=== PATIENT | male | born 1970 | race Caucasian/White ===

== ENCOUNTER 2023-09-29 08:26 | Outpatient (AMB) | payer OTHER, SELFPAY ==
--- NOTE | 2023-09-29 08:30 | MHC.PC.OV ---
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 Patient reports he would like to discuss a few minor concerns with the provider. Carding Machine Feeder Required: No Accompanied by: Self / Same As Patient Allergies No Known Allergies Allergy (Verified 09/29/23 08:35) Medication List - Last Reconciled 09/29/23 by JOSSELINE AbdullahiP- No Known Home Meds Tobacco use date assessed: 09/29/23 Dental Screening Dental Screen Date: 09/29/23 Did you have a dental visit in the last 12 months?: Yes Did you have a dental problem in the last 6 months where you did not have access to dental care?: No Was dental information given to patient?: Patient has dentist HPI HPI Comments History of Present Illness Details 53 Y/O M newly with obesity, daily etoh use 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 Health Maintenance: Colon: never had one, referral placed today Vaccines: UTD on COVID, declines flu, due for Tdap will get today. Specialists: none Surgeries: None Here today for CPE Reports no health care in > 20 years. Routine dental and Optho f/u. No concerns. Skin: Right hand mole noticed 5-6 months ago. It has not changed since this time. Denies personal hx of skin cancer. Also reports darkening of areola on R side, started a few months ago. Denies any pain, discharge or increased size of this breast. Drinks almost daily. Denies any concerns. Denies w/drawl or detox. [facility] Social History (Updated 09/29/23 @ 08:39 by Janelle Perez [facility]) Household Members: Children Household Members Other:: daughter Housing: Apartment Are you a primary home health care social worker to a significant other at home: No Do you presently have visiting nurse or other home services: No Alcohol intake: current Alcohol intake frequency: 3 or more drinks per day Alcohol type: beer and hard liquor Comment: Patient drinks about 5 days per week Patient Tobacco Use Status: Never used Tobacco e-Cigarette/Vaping Use: Never Used service: No Current occupational status: employed Current occupation: [employer] in [place], [place], [employer] Current occupational exposures/hazards: Yes Sexual orientation: Unable to collect Gender identity: Unable to collect Cognitive needs: No Hearing needs: No Vision needs: No (Patient wears glasses) Questionnaire PHQ-9 Over the last 2 weeks, how often have you been bothered by any of the following problems? 1. Little interest or pleasure in doing things: not at all 2. Feeling down, depressed, or hopeless: not at all 3. Trouble falling or staying asleep, or sleeping too much: not at all 4. Feeling tired or having little energy: not at all 5. Poor appetite or overeating: not at all 6. Feeling bad about yourself - or that you are a failure or have let yourself or your family down: not at all 7. Trouble concentrating on things, such as reading the newspaper or watching television: not at all 8. Moving or speaking so slowly that other people could have noticed. Or the opposite - being so fidgety or restless that you have been moving around a lot more than usual: not at all 9. Thoughts that you would be better off or of hurting yourself in some way: not at all Total score: 0 Depression Screening Interpretation: Negative Depression Screening Done: Yes 90551 - PHQ-9 Billing: Yes Source: Developed by Drs. Horacio Donnelly, Dina Mcclellan, Salvador Bermudez and colleagues, with an educational chasity from [employer]. Thrive Questionnaire Date Thrive assessed: 09/29/23 I am a: Patient What is your living situation today?: I have a steady place to live Within the past 12 months, did the food you bought not last and you didn't have the money to get more?: Never true Within the past 12 months, did you worry whether your food would run out before you got money to buy more?: Never true Do you have trouble paying for medicines?: No Do you have trouble getting transportation to medical appointments?: No Do you have trouble paying your heating and electricity bill?: No Do you have trouble taking care of your child, family member or friend?: No Do you have trouble with day-to-day activities such as bathing, preparing meals, shopping, managing finances, etc.?: No Are you currently unemployed and looking for a job?: No Are you interested in more education?: No Please select the resources that you would like help with: None Currently or been in a relationship where the following occur: no concerns reported THRIVE Score: 0 AUDIT C Alcohol Use Questionnaire (AUDIT-C) 1. How often do you have a drink containing alcohol?: 4 or more times a week 2. How many drinks containing alcohol do you have on a typical day when you are drinking?: 3 or 4 3. How often do you have six or more drinks on one occasion?: Never Total Score: 5 Score Reviewed/Action Taken: Yes DONNIE-7 AMB Questionnaire DONNIE-7 Date DONNIE - 7 assessed: 09/29/23 Feeling nervous, anxious, or on edge: 0 = Not at all Not being able to stop or control worryin = Not at all Worrying too much about different things: 0 = Not at all Trouble relaxin = Not at all Being so restless that it is hard to sit still: 0 = Not at all Becoming easily annoyed or irritable: 0 = Not at all Feeling afraid as if something awful might happen: 0 = Not at all Total DONNIE-7 score (0-4 normal; 5-9 mild; 10-14 moderate; 15-21 severe): 0 Source: Developed by Drs. Horacio Donnelly, Dina Mcclellan, Salvador Bermudez and colleagues, with an educational chasity from [employer]. DONNIE-7 Assessment Billing DONNIE-7 Assessment Tool: DONNIE-7 Assessment 60932 Review of Systems Const Details: Constitutional: [Denies} fever. Skin: Denies rash. Eye: Denies eye pain. ENMT: Denies sore throat and nasal congestion. Respiratory: Denies shortness of breath and cough. Gastrointestinal: Denies nausea, vomiting or abdominal pain. Cardiovascular: Denies chest pain and syncope. Genitourinary: Denies dysuria. Musculoskeletal: Denies back pain and extremity pain. Neurologic: Denies headaches, confusion, and weakness. Psychiatric: Denies suicidal thoughts and substance abuse. Allergy/ Immunologic: Denies impaired immunity. Physical exam (Primary Care) Vital Signs: Last Vital Signs Pulse 78 09/29/23 08:32 Resp 14 09/29/23 08:32 BP 122/78 09/29/23 08:32 Pulse Ox 96 09/29/23 08:32 Oxygen Delivery Method Room Air 09/29/23 08:32 BMI result Body Mass Index 30.5 BMI Assessment/Plan discussion: High BMI High, discussed plan: lifestyle and dietary Tobacco/Smoking Status: Tobacco use Status Tobacco use date assessed 09/29/23 09/29/23 08:42 Patient Tobacco Use Status Never used Tobacco 09/29/23 08:42 e-Cigarette/Vaping Use Never Used 09/29/23 08:42 PHQ-9: PHQ-9 Score PHQ-9: Total score 0 09/29/23 08:46 Depression Screening Interpretation: Negative Thrive Assessment: Date of Thrive Assessment Date Thrive assessed 09/29/23 09/29/23 08:42 Currently or been in a relationship where the following occur: no concerns reported Const Other: General: Well developed, well nourished, in no acute distress. Appears stated age. Head: Normocephalic, atraumatic. Eyes: Pupils are equal, round and reactive to light and accommodation. Conjunctivae are clear. Vision grossly normal. Ears: TMs clear AU, EACS WNL Nose: Patent, without discharge. Mouth: There are no ulcers or lesions noted. No inflammation, no post nasal drip, no plaques nor exudates. Neck: Supple, no adenopathy or thyromegaly. Lungs: Clear to auscultation bilaterally. No rales, rhonchi or wheeze noted. Good air flow in all jaffe. Heart: Regular rate and rhythm. No murmurs, click, rubs or gallops are noted. Abdomen: Bowel sounds present in all quadrants. The abdomen is soft, nontender, with no masses. No hernias are noted. Positive hepatomegaly liver out palpable but nontender Musculoskeletal: Joints are nontender, without swelling, redness, or effusions. Range of motion is observed to be normal. Pulses: Peripheral pulses are equal and palpable bilaterally. Extremities: No clubbing, cyanosis nor edema is noted. Hairless bilateral lower extremities, skin is shiny and intact Neurologic: Gait and station normal. Cranial Nerves 2-12 intact. Motor strength grossly symmetrical and intact. No sensory loss. Balance normal. Skin: No rash. Turgor is good. Skin color is good. Hair and nails are without abnormalities. Areolar keratitis of the right without any other breast abnormalities noted such as discharge dimpling retraction or gynecomastia. Multiple nevi noted on trunk. Dorsum of right hand is a pale flesh colored nevi slightly raised with regular borders with scaling. Psych: Normal eye contact, affect and mood appropriate, and normal interactions. Patient is alert and appropriate to context. Immunizations Boostrix Tdap 2.5 Lf unit-8 mcg-5 Lf/0.5 mL intramuscular syringe Performing Provider: JEAN-PAUL Abdullahi Performing Location: [facility] Administered by: Ame Carver RN on 09/29/23 09:22 Dose Route Admin Location Dispensed Lot Number Expiration Date NDC Bus Info Consultant 0.5 mL IM Left Deltoid 0.5 mL [id number] 07/16/25 [id number] [employer] VIS Given Date VIS Provided VIS Publication Date 09/29/23 Single Vaccine 21 Eligibility Eligibility Date Funding Source Not [facility] Eligible 09/29/23 Private Assessment and Plan Assessment & Plan (1) Routine physicl lab exam: Code(s): Z00.00 - Encounter for general adult medical examination without abnormal findings (2) Screening for colon cancer: Code(s): Z12.11 - Encounter for screening for malignant neoplasm of colon Plan: Refer to [facility] for his 1st colon screening (3) Laboratory exam ordered as part of routine general medical examination: Code(s): Z00.00 - Encounter for general adult medical examination without abnormal findings (4) Areolar keratitis: Comment: Refer to dermatology for further evaluation and treatment Code(s): H16.119 - Macular keratitis, unspecified eye Qualifiers: Laterality: right Qualified Code(s): H16.111 - Macular keratitis, right eye (5) Numerous moles: Comment: Refer to dermatology for further evaluation and treatment Code(s): D22.9 - Melanocytic nevi, unspecified (6) Obesity (BMI 30-39.9): Comment: Lifestyle modifications and ETOH reduction encouraged Code(s): E66.9 - Obesity, unspecified (7) PVD (peripheral vascular disease): Comment: Based on physical exam findings hairless bilateral lower extremities and shiny skin. Code(s): I73.9 - Peripheral vascular disease, unspecified (8) Alcohol use disorder: Comment: Daily alcohol drinker. Denies any withdrawal in the past. Declines any referral for assistance. Code(s): F10.90 - Alcohol use, unspecified, uncomplicated Orders: Orders Comprehensive [place]. Panel Fast Today Z00.00 - Encounter for general adult medical examination without abnormal findings, Z12.11 - Encounter for screening for malignant neoplasm of colon TDaP Immunization Today Z23 - Encounter for immunization Lipid Panel Today Z00.00 - Encounter for general adult medical examination without abnormal findings, Z12.11 - Encounter for screening for malignant neoplasm of colon Microalbumin, Random (w Creat) Today Z00.00 - Encounter for general adult medical examination without abnormal findings, Z12.11 - Encounter for screening for malignant neoplasm of colon TSH reflex Free T4 Today Z00.00 - Encounter for general adult medical examination without abnormal findings, Z12.11 - Encounter for screening for malignant neoplasm of colon Vitamin D 1,25 dihydroxy Today Z00.00 - Encounter for general adult medical examination without abnormal findings, Z12.11 - Encounter for screening for malignant neoplasm of colon PSA, Ultra Sensitive Today Z00.00 - Encounter for general adult medical examination without abnormal findings, Z12.11 - Encounter for screening for malignant neoplasm of colon Referrals Gastroenterology Referral Z00.00 - Encounter for general adult medical examination without abnormal findings, Z12.11 - Encounter for screening for malignant neoplasm of colon Dermatology Referral D22.9 - Melanocytic nevi, unspecified, H16.119 - Macular keratitis, unspecified eye Patient Instructions: Health screenings for men ages 40 to 64 You should visit your health care provider regularly, even if you feel healthy. The purpose of these visits is to: Screen for medical issues Assess your risk for future medical problems Encourage a healthy lifestyle Update vaccinations and other preventive care services Help you get to know your provider in case of an illness Information Even if you feel fine, you should still see your provider for regular checkups. These visits can help you avoid problems in the future. For example, the only way to find out if you have high blood pressure is to have it checked regularly. High blood sugar and high cholesterol level also may not have any symptoms in the early stages. Simple blood tests can check for these conditions. There are specific times when you should see your provider or receive specific health screenings. The [place] Preventive Services Task Force publishes a list of recommended screenings. Below are screening guidelines for men ages 40 to 64. BLOOD PRESSURE SCREENING Have your blood pressure checked at least once every year. Watch for blood pressure screenings in your area. Ask your provider if you can stop in to have your blood pressure checked. Ask your provider if you need your blood pressure checked more often if: You have diabetes, heart disease, kidney problems, or are overweight or have certain other health conditions You have a first-degree relative with high blood pressure You are Black Your blood pressure top number is from 120 to 129 mm Hg, or the bottom number is from 70 to 79 mm Hg If the top number is 130 mm Hg or greater or the bottom number is 80 mm Hg or greater, this is considered stage 1 hypertension. Schedule an appointment with your provider to learn how you can lower your blood pressure. Effects of age on blood pressure CHOLESTEROL SCREENING Cholesterol screening should begin at age 35 for men with no known risk factors for coronary heart disease. Repeat cholesterol screening should take place: Every 5 years for men with normal cholesterol levels More often if changes occur in lifestyle (including weight gain and diet) More often if you have diabetes, heart disease, kidney problems, or certain other conditions COLORECTAL CANCER SCREENING If you are under age 45, talk to your provider about getting screened. You may need to be screened if you have a strong family history of colon cancer or polyps. Screening may also be considered if you have risk factors such as a history of inflammatory bowel disease or polyps. If you are age 45 to 75, you should be screened for colorectal cancer. There are several screening tests available: A stool-based fecal occult blood (gFOBT) or fecal immunochemical test (FIT) every year A stool sDNA test every 1 to 3 years Flexible sigmoidoscopy every 5 years or every 10 years with stool testing FIT done every year CT colonography (virtual colonoscopy) every 5 years Colonoscopy every 10 years You may need a colonoscopy more often if you have risk factors for colorectal cancer, such as: Ulcerative colitis A personal or family history of colorectal cancer A history of growths in your colon called adenomatous polyps DENTAL EXAM Go to the dentist once or twice every year for an exam and cleaning. Your dentist will evaluate if you have a need for more frequent visits. DIABETES SCREENING All adults who do not have risk factors for diabetes should be screened starting at age 35 and repeated every 3 years. If you have other risk factors for diabetes, such as a first degree relative with diabetes, overweight or obesity, high blood pressure, prediabetes, or a history of heart disease, you may be tested more often. If you are overweight and have other risk factors, such as high blood pressure and are planning to become , screening is recommended. EYE EXAM Have an eye exam every 2 to 4 years ages 40 to 54 and every 1 to 3 years ages 55 to 64. Your provider may recommend more frequent eye exams if you have vision problems or glaucoma risk. Have an eye exam that includes an examination of your retina (back of your eye) at least every year if you have diabetes. IMMUNIZATIONS Commonly needed vaccines include: Flu shot: get one every year COVID-19 vaccine: ask your provider what is best for you Tetanus-diphtheria and acellular pertussis (Tdap) vaccine: have as one of your tetanus-diphtheria vaccines if you did not receive it as an adolescent Tetanus-diphtheria: have a booster (or Tdap) every 10 years Varicella vaccine: receive 2 doses if you never had chickenpox or the varicella vaccine and were born in 1979 or after Hepatitis B vaccine: receive 2, 3, or 4 doses, depending on your exact circumstances, if you did not receive these as a child or adolescent, until age 59 Shingles (herpes zoster) vaccine: at or after age 50 Ask your provider if you should receive other immunizations, especially if you have certain medical conditions, such as diabetes or are at increased risk for some diseases such as pneumonia. INFECTIOUS DISEASE SCREENING Screening for hepatitis C: all adults ages 18 to 79 should get a one-time test for hepatitis C. Screening for human immunodeficiency virus (HIV): all people ages 15 to 65 should get a one-time test for HIV. Depending on your lifestyle and medical history, you may need to be screened for infections such as syphilis, chlamydia, and other infections. LUNG CANCER SCREENING You should have an annual screening for lung cancer with low-dose computed tomography (LDCT) if: You are age 50 to 80 years AND You have a 20 pack-year smoking history AND You currently smoke or have quit within the past 15 years OSTEOPOROSIS SCREENING If you are age 50 to 64 and have risk factors for osteoporosis, you should discuss screening with your provider. Risk factors can include long-term steroid use, low body weight, smoking, heavy alcohol use, having a fracture after age 50, or a family history of hip fracture or osteoporosis. Osteoporosis PHYSICAL EXAM All adults should visit their provider from time to time, even if they are healthy. The purpose of these visits is to: Screen for diseases Assess risk of future medical problems Encourage a healthy lifestyle Update vaccinations and other preventive care services Maintain a relationship with a provider in case of an illness Your height, weight, and body mass index (BMI) should be checked at every exam. During your exam, your provider may ask you about: Depression and anxiety Diet and exercise Alcohol and tobacco use Safety, such as use of seat belts and smoke detectors Your medicines and risk for interactions PROSTATE CANCER SCREENING If you're 55 through 69 years old, before having the test, talk to your provider about the pros and cons of having a PSA test. Ask about: Whether screening decreases your chance of dying from prostate cancer. Whether there is any harm from prostate cancer screening, such as side effects from testing or overtreatment of cancer when discovered. Whether you have a higher risk of prostate cancer than others. If you are age 55 or younger, screening is not generally recommended. You should talk with your provider about if you have a higher risk for prostate cancer. Risk factors include: Having a family history of prostate cancer (especially a brother or father) Being If you choose to be tested, the PSA blood test is repeated over time (yearly or less often), though the best frequency is not known. Prostate examinations are no longer routinely done on men with no symptoms. Prostate cancer SKIN EXAM Your provider may check your skin for signs of skin cancer, especially if you're at high risk. People at high risk include those who have had skin cancer before, have close relatives with skin cancer, or have a weakened immune system. TESTICULAR EXAM The [place] Preventive Services Task Force (USPSTF) now recommends against performing testicular self-exams. Doing testicular self-exams has been shown to have little to no benefit. Review Flu Vaccine not done: patient reason Coding Level of Care Code New Pt Prev Care 40-64y(56809) Diagnoses Routine physicl lab exam Z00.00 Screening for colon cancer Z12.11 Laboratory exam ordered as part of routine general medical examination Z00.00 Areolar keratitis of right eye H16.111 Laterality: right Numerous moles D22.9 Obesity (BMI 30-39.9) E66.9 PVD (peripheral vascular disease) I73.9 Alcohol use disorder F10.90 Additional Codes DONNIE-7 Assessment Billing - DONNIE-7 Assessment Tool: DONNIE-7 Assessment [id number] ([id number])
[2023-09-29 08:32] VITALS: BP 122/78; PULSE 78; RESP 14; O2SAT 96; BMI 30.5
== END 2023-09-29 09:27 | disposition home or self-care (01) ==
PROVIDERS: PCP Nurse Practitioner Family; Visit Provider Nurse Practitioner Family
DX: Z00.00 Encounter for general adult medical examination without abnormal findings (principal); I73.9 Peripheral vascular disease, unspecified; E66.9 Obesity, unspecified; Z23 Encounter for immunization; Z68.30 Body mass index [BMI] 30.0-30.9, adult; Z12.11 Encounter for screening for malignant neoplasm of colon; H16.11 Macular keratitis; D22.9 Melanocytic nevi, unspecified; F10.90 Alcohol use, unspecified, uncomplicated
CPT/HCPCS: 90471; 90715; 99386

== ENCOUNTER 2023-09-29 09:19 | Outpatient (REF) | payer OTHER, SELFPAY ==
[2023-09-29 11:51] LABS: Creatinine Urine 156.81 mg/dL; Microalbum/Creatinine Ratio Ur 3.8 ug/mg cr (<30)
[2023-09-29 11:56] LABS: Alanine Aminotransferase 59 U/L (0-40); Albumin Level 4.3 g/dL (3.5-5.0); Alkaline Phosphatase 56 U/L (39-117); Anion Gap 13 (12-20); Aspartate Amino Transferase 41 U/L (5-37); Bilirubin Total 0.8 mg/dL (0.0-1.0); Blood Urea Nitrogen 12 mg/dL (9-16); Calcium 9.9 mg/dL (8.4-10.2); Carbon Dioxide 26 mmol/L (22-29); Chloride 103 mmol/L (96-108); Cholesterol 194 mg/dL (<200); Estimated Glomerular Filt Rate > 60; Glucose Fasting 130 mg/dL (60-99); HDL Cholesterol 49 mg/dL (>40); LDL Cholesterol Calculated 119 mg/dL (<100); Potassium 3.8 mmol/L (3.3-5.1); Sodium 138 mmol/L (135-145); Total Protein 7.5 g/dL (6.5-8.0); Triglycerides 132 mg/dL (<150)
[2023-09-29 12:11] LABS: TSH reflex Free T4 0.81 uIU/mL (0.32-4.0)
[2023-10-02 17:39] LABS: PSA, Ultra Sensitive 0.35 ng/mL
[2023-10-03 01:14] LABS: VITAMIN D (1,25 OH) D3 47 pg/mL; Vit D (1,25-Dihydroxy) Total 47 pg/mL (18-72); Vitamin D (1,25 OH) D2 <8 pg/mL
== END 2023-09-29 09:20 | disposition home or self-care (01) ==
LOC: HO.WFDLDS 09:19
PROVIDERS: Visit Provider Nurse Practitioner Family
DX: Z00.00 Encounter for general adult medical examination without abnormal findings (principal); Z12.5 Encounter for screening for malignant neoplasm of prostate
CPT/HCPCS: 36415; 80053; 80061; 82043; 82570; 82652; 84153; 84443

== ENCOUNTER 2023-11-04 08:11 | Outpatient (REF) | payer OTHER, SELFPAY ==
--- NOTE | ~2023-11-04 | US_ITS ---
EXAMINATION: US ABDOMEN LIMITED WITH LIVER ELASTOGRAPHY CLINICAL INFORMATION: Abnormal findings of blood chemistry. COMPARISON: None available. TECHNIQUE: Real-time imaging of the abdominal viscera. Noninvasive ultrasound liver fibrosis assessment is performed using Barbara ElastPQ point quantification shear wave elastography (2D-SWE) with a C5-2 MHz transducer. Multiple elastography samples are obtained. FINDINGS: PANCREAS: Normal. The visualized pancreatic head and body are normal in appearance. The remainder of the pancreas is obscured from visualization by the overlying bowel gas. LIVER: The liver demonstrates normal size, contour and increased echogenicity. No focal lesion or intrahepatic biliary duct dilatation. The right lobe measures 14.8 cm in length. The left lobe measures 11.9 cm in length. Portal flow is towards the liver (hepatopetal). Shear wave liver elastography median stiffness is 1.38 m/s (reference: normal median stiffness is 1.3 m/s or less). IQR/median stiffness to assess sampling precision is 0.15 (reference: good quality data set is IQR/median stiffness of 0.15 or less). GALLBLADDER: There are multiple cholesterol polyps, the largest measuring 3 mm. The gallbladder is physiologically distended without evidence of stones, sludge, polyps, wall thickening or pericholecystic fluid. COMMON BILE DUCT: Normal in caliber measuring 0.3 cm in diameter. RIGHT KIDNEY: Normal. No hydronephrosis. No renal calculi or focal parenchymal lesions. The kidney measures 10.5 cm in maximum dimension. FREE FLUID: None. US/US abdomen henriquez w elastography IMPRESSION: 1. There is generalized increase in hepatic echotexture, consistent with fatty infiltration or hepatocellular disease. Please correlate clinically. No focal hepatic mass or intrahepatic biliary dilatation is seen. 2. Liver elastography: In the absence of other known clinical signs, measurements rule out compensated advanced chronic liver disease. If there are known clinical signs, further testing may be needed for confirmation. 3. Incidental note is made of tiny cholesterol polyps, the largest measuring 3 mm. REFERENCE: Society of Radiologists in Ultrasound Liver Stiffness Thresholds (2020): LIVER STIFFNESS THRESHOLDS: *Liver Stiffness equal or less than 1.3 m/s: High probability of being normal. *Liver Stiffness less than 1.7 m/s: In the absence of other known clinical signs, rules out compensated advanced chronic liver disease. *Liver Stiffness 1.7-2.1 m/s: Suggestive of compensated advanced chronic liver disease but need further test for confirmation. *Liver Stiffness over 2.1 m/s: Rules in compensated advanced chronic liver disease. *Liver Stiffness over 2.4 m/s: Suggestive of clinically significant portal hypertension. QUALITY OF DATA SET: *IQR/Median value equal or less than 0.15 implies a quality data set. *IQR/Median value over 0.15 implies a poor quality data set. SIGNIFICANT CHANGE FROM PRIOR EXAM: Significant change if liver stiffness measurement is 10% or greater from prior exam. OTHER CONSIDERATIONS: The stage of liver fibrosis may be overestimated in the setting of acute hepatitis, liver inflammation, elevated liver function tests, hepatic vascular congestion, obstructive cholestasis, non-fasting state, and infiltrative diseases such as amyloidosis and lymphoma. In some patients with NAFLD, the liver stiffness thresholds for compensated advanced chronic liver disease may be lower. In causes other than viral hepatitis and NAFLD, liver stiffness thresholds are not well established.
== END 2023-11-04 08:12 | disposition home or self-care (01) ==
LOC: HO.US 08:11
PROVIDERS: PCP Nurse Practitioner Family; Visit Provider Nurse Practitioner Family
DX: R79.89 Other specified abnormal findings of blood chemistry (principal); R73.01 Impaired fasting glucose; F10.90 Alcohol use, unspecified, uncomplicated
CPT/HCPCS: 76705; 76981

== ENCOUNTER 2023-12-09 13:19 | Outpatient (AMB) | payer OTHER, SELFPAY ==
--- NOTE | 2023-12-09 13:20 | MHC.OFFVIS ---
Vital Signs 12/09/23 13:25 Height 6 ft Weight 227 lb 1.218 oz BMI 30.8 BP 143/80 H Blood Pressure Location Lt brachial Position Sitting Pulse 75 Intake Visit Reasons: pre colonoscopy Intake Note: Fabiano presents in the office as a colonoscopy screening. CC: He states that he had an ultrasound but never got results. US was done here he states it was ordered by the second floor. Commissioner Conservation Of Resources Required: No Allergies No Known Allergies Allergy (Verified 12/09/23 13:25) HPI HPI pre colonoscopy: Details: 53 year old? male here today for pre colonoscopy screening.? Patient had elevated liver enzymes back in September. PCP send patient for abdominal ultrasound with elastography. Patient reports drinking beer and whiskey about 5 days a week. Ultrasound showed increased echogenicity of the liver, no hepatomegaly. This is his first colonoscopy screening.? Patient denies any gastrointestinal symptoms in the past or at present.? Denies any personal or family history of gastrointestinal disease, colon polyps, or CRC.? Denies history of difficulty with sedation or anesthesia in the past.? Negative for history of sleep apnea.? Denies any history of cardiac, renal, pulmonary, or hepatic disease.?? No history of infectious? diseases like hepatitis A, B, C, HIV or tuberculosis.? Patient is not on any anticoagulation therapy. [facility] Medical History No pertinent past medical history Surgical History History of tonsillectomy Family History Father Hypertension Mother Ovarian cancer Maternal Grandmother Lung cancer Maternal Grandfather Lung cancer Paternal Grandfather Hypertension Cardiac disease Brother Alcoholism Sister Hypertension Social History Household Members: Children Household Members Other:: daughter Housing: Apartment Are you a primary pharmacy care coordinator to a significant other at home: No Do you presently have visiting nurse or other home services: No 75 years or older and lives alone: No Alcohol intake: current Alcohol intake frequency: 3 or more drinks per day Alcohol type: beer and hard liquor Comment: Patient drinks about 5 days per week Patient Tobacco Use Status: Never used Tobacco e-Cigarette/Vaping Use: Never Used service: No Current occupational status: employed Current occupation: [employer] in [place], [place], [employer] Current occupational exposures/hazards: Yes Sexual orientation: Unable to collect Gender identity: Unable to collect Cognitive needs: No Hearing needs: No Vision needs: No (Patient wears glasses) Review of Systems Const Denies weight gain and Denies weight loss ENT Reports no additional complaints, Denies dysphagia and Denies odynophagia Card Reports no additional complaints Resp Reports no additional complaints GI Denies abdominal pain, Denies belching, Denies melena, Denies bloating, Denies change in bowel habits, Denies dysphagia, Denies excessive flatus, Denies dyspepsia, Denies heartburn, Denies diarrhea, Denies loose stools, Denies nausea, Denies odynophagia and Denies vomiting Reports no additional complaints Musc Reports no additional complaints Neuro Reports no additional complaints Psych Reports no additional complaints Endo Reports no additional complaints Physical Exam Vital Signs: Last Vital Signs Pulse 75 12/09/23 13:25 BP 143/80 H 12/09/23 13:25 BMI result Body Mass Index 30.8 Const General: healthy appearing and no acute distress Nutritional Appearance: obese Orientation/consciousness: patient oriented x3 Resp Effort & Inspection: normal respiratory effort, able to speak in complete sentences, no tracheal deviation and symmetric chest movement Auscultation: clear to auscultation bilaterally Cardio Rate: regular rate GI Inspection: Yes normal to inspection and No distended Palpation (GI): Soft to palpation, not firm, nontender and No hepatosplenomegaly present Auscultation: normal bowel sounds General: Yes no CVA tenderness Back/Spine/Pelvis Back: no CVA tenderness Skin General skin exam: elasticity normal, turgor normal and dry skin Neuro General: patient oriented x3 Psych Appearance: grossly normal Mental Status: mental status grossly normal Assessment & Plan Assessment & Plan (1) Screening for colon cancer: Code(s): Z12.11 - Encounter for screening for malignant neoplasm of colon Plan Patient denies any GI, cardiac or respiratory symptoms. ?Denies any issues with anesthesia in the past.? Denies any history of sleep apnea.? No history infectious diseases in the past or present.? Not on any anticoagulation therapy.? No family or personal history of colon cancer or polyps.? Patient denies melena, hematochezia, unintentional weight loss or ribbon like stools.? Discussed at length the pre-procedure,? prep, diet & medications as well as what to expect prior, during and after the procedure.?? Stressed the importance of good bowel prep. ?Recommended the use of Vaseline or Calmoseptine OTC & baby wipes with bowel movements to promote comfort.? ?Patient verbalizes understanding and agrees to plan of care.? He was given the opportunity to ask questions and all questions answered.? We will see him after the procedure.? Medications: New polyethylene glycol 3350 (Miralax) As directed by gastroenterology department at [facility] 238 grams PO ONCE 238 grams 0RF Z12.11 - Encounter for screening for malignant neoplasm of colon bisacodyl (Dulcolax (bisacodyl)) take 4 tabs at noon the day before your colonoscopy 20 mg (4 x 5 mg) PO ONCE 1 day 4 tabs 0RF Z12.11 - Encounter for screening for malignant neoplasm of colon Coding Level of Care Code New Pt Level 3 (54906) Diagnoses Screening for colon cancer Z12.11 Time Spent (min) 40 Comment 30 minutes spent with patient and additional 10 minutes spent reviewing his records
[2023-12-09 13:25] VITALS: BP 143/80; PULSE 75; BMI 30.8
== END 2023-12-09 14:12 | disposition home or self-care (01) ==
PROVIDERS: PCP Nurse Practitioner Family; Visit Provider Nurse Practitioner Family
DX: Z12.11 Encounter for screening for malignant neoplasm of colon (principal); Z01.818 Encounter for other preprocedural examination
CPT/HCPCS: 99203

== ENCOUNTER → 2023-12-09 13:19 | Outpatient (BNVA) | payer OTHER, SELFPAY | PROVIDERS: PCP Nurse Practitioner Family; Visit Provider Nurse Practitioner Family | DX: Z12.11 Encounter for screening for malignant neoplasm of colon (principal) | CPT/HCPCS: 99202 ==

== ENCOUNTER 2023-12-29 10:27 | Outpatient (AMB) | payer OTHER, SELFPAY ==
[2023-12-29 10:32] VITALS: BP 108/72; PULSE 73; RESP 14; TEMP 36.8; O2SAT 99; BMI 30.6
--- NOTE | 2023-12-29 10:32 | A.OFFPC_ITS ---
Vital Signs 3 12/29/23 10:32 Height 6 ft Weight 225 lb 6 oz BMI 30.6 BP 108/72 Blood Pressure Location Lt radial Position Sitting Respiration 14 Pulse 73 Pulse Source Pulse Oximeter Temp 98.3 F Temp Source Oral Pulse Oximetry (%) 99 Oxygen Delivery Method Room Air Intake Visit Reasons: 3 mth follow up Intake Note: Three month follow up Construction Representative Required: No Allergies No Known Allergies Allergy (Verified 12/29/23 11:02) Medication List - Last Reconciled 12/29/23 by Lisandra Sandoval, PANTOGRAPH TRANSFERRER- bisacodyl (Dulcolax (bisacodyl)) 20 mg (4 x 5 mg) PO ONCE 1 day polyethylene glycol 3350 (Miralax) 238 grams PO ONCE Tobacco use date assessed: 12/29/23 Dental Screening Dental Screen Date: 09/29/23 HPI HPI Comments 2 History of Present Illness0 Details 53 Y/O M newly with obesity, da maximus etoh use, PVD, IFg, elevated LFT, fatty liver dz, 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 Health Maintenance: Colon: [facility] - had consult, scheduled 04/2024 on cancellation list Vaccines: UTD on COVID, declines flu, Tdap 09/29/2023. Specialists: none Surgeries: None Here today for follow up of impaired fasting glucose and elevated liver function tests. Since last office visit he had his abdominal ultrasounds. Results reviewed with him today. Reports that he continues to drink although has cut down. He did have his 1st consult with GI and has a colonoscopy scheduled in April. He is still waiting on an appointment with Dermatology. I have advised him to follow up with the front office to get the referral information and schedule an appointment. He is worried about the discoloration of bilateral lower extremities. Reports that he is lost all of the hair. Recently had a friend who developed wounds ended up in the hospital and does not want this to happen. Finally he reports that he has bumps under the skin of the back of his arms bilateral have been present for years. They have not gotten any bigger or change since onset but he wonders what they are. ABD US 11/2023 1. There is generalized increase in hepatic echotexture, consistent with fatty infiltration or hepatocellular disease. Please correlate clinically. No focal hepatic mass or intrahepatic biliary dilatation is seen. 2. Liver elastography: In the absence o f other known clinical signs, measurements rule out compensated advanced chronic liver disease. If there are known clinical signs, further testing may be needed for confirmation. 3. Incidental note is made of tiny daxa sterol polyps, the largest measuring 3 mm. Shear wave liver elastography median stiffness is 1.38 m/s (reference: normal median stiffness is 1.3 m/s or less). [facility] Medical History No pertinent past medical history Surgical History History of tonsillectomy Family History Father Hypertension Mother Ovarian cancer Maternal Grandmother Lung cancer Maternal Grandfather Lung cancer Paternal Grandfather Hypertension Cardiac disease Brother Alcoholism Sister Hypertension Social History Household Members: Children Household Members Other:: daughter Housing: Apartment Are you a primary career based intervention coordinator to a significant other at home: No Do you presently have visiting nurse or other home services: No 75 years or older and lives alone: No Alcohol intake: current Alcohol intake frequency: 3 or more drinks per day Alcohol type: beer and hard liquor Comment: Patient drinks about 5 days per week Patient Tobacco Use Status: Never used Tobacco e-Cigarette/Vaping Use: Never Used service: No Current occupational status: employed Current occupation: [employer] in [place], [place], [employer] Current occupational exposures/hazards: Yes Sexual orientation: Unable to collect Gender identity: Unable to collect Cognitive needs: No Hearing needs: No Vision needs: No (Patient wears glasses) Questionnaire Thrive Questionnaire Date Thrive assessed: 09/29/23 DONNIE-7 AMB Questionnaire DONNIE-7 Date DONNIE - 7 assessed: 09/29/23 Source: Developed by Drs. Horacio Donnelly, Dina Mcclellan, Salvador Bermudez and colleagues, with an educational chasity from [employer]. Physical exam (Primary Care) Vital Signs: Last Vital Signs Temp 98.3 F 12/29/23 10:32 Pulse 73 12/29/23 10:32 Resp 14 05/20/24 10:32 BP 108/72 12/29/23 10:32 Pulse Ox 99 12/29/23 10:32 Oxygen Delivery Method Room Air 12/29/23 10:32 BMI result Body Mass Index 30.6 BMI Assessment/Plan discussion: High BMI High, discussed plan: lifestyle and dietary Tobacco/Smoking Status: Tobacco use Status Tobacco use date assessed 12/29/23 12/29/23 10:35 Patient Tobacco Use Status Never used Tobacco 12/29/23 10:35 e-Cigarette/Vaping Use Never Used 12/29/23 10:35 Thrive Assessment: Date of Thrive Assessment Date Thrive assessed 09/29/23 12/29/23 10:35 Const Other: General: Well developed, well nourished, in no acute distress. Appears stated age. Lungs: Clear to auscultation bilaterally. No rales, rhonchi or wheeze noted. Good air flow in all jaffe. Heart: Regular rate and rhythm. No murmurs, click, rubs or gallops are noted. Abdomen: Bowel sounds present in all quadrants. The abdomen is soft, with no masses. No hernias are noted. Positive hepatomegaly liver edge palpable, mildly tender Pulses: Peripheral pulses are equal and palpable bilaterally. Extremities: No clubbing, cyanosis nor edema is noted. Hairless bilateral lower extremities, skin is shiny and intact with hemosiderin Skin: No rash. Turgor is good. Skin color is good. Hair and nails are without abnormalities. Areolar keratitis of the right without any other breast abnormalities noted such as discharge dimpling retraction or gynecomastia. Multiple nevi noted on trunk. Dorsum of right hand is a pale flesh colored nevi slightly raised with regular borders with scaling. Psych: Normal eye contact, affect and mood appropriate, and normal interactions. Patient is alert and appropriate to context. Chest Chest/axillae images: 2 1. soft, spongy nontender mass - c/w lipoma 2. soft, spongy nontender mass c/w lipoma 3. soft, spongy nontender mass c/w lipoma Assessment and Plan Assessment & Plan (1) IFG (impaired fasting glucose): Comment: Repeat CMP and hemoglobin A1c today to monitor trending. Code(s): R73.01 - Impaired fasting glucose (2) Elevated LFTs: Comment: ABD US 11/2023 1. There is generalized increase in hepatic echotexture, consistent with fatty infiltration or hepatocellular disease. Please correlate clinically. No focal hepatic mass or intrahepatic biliary dilatation is seen. 2. Liver elastography: In the absence of other known clinical signs, measurements rule out compensated advanced chronic liver disease. If there are known clinical signs, further testing may be needed for confirmation. 3. Incidental note is made of tiny cholesterol polyps, the largest measuring 3 mm. Shear wave liver elastography median stiffness is 1.38 m/s (reference: normal median stiffness is 1.3 m/s or less). Repeat LFTs today. Consult with GI complete. Continue to encourage and support alcohol reduction and cessation. Code(s): R79.89 - Other specified abnormal findings of blood chemistry (3) PVD (peripheral vascular disease): Comment: Based on physical exam findings hairless bilateral lower extremities and shiny skin. Repeat LDL today. Discuss the use of statins. He has declined at this time. Encouraged to monitor skin integrity and report any open areas immediately. Code(s): I73.9 - Peripheral vascular disease, unspecified (4) Alcohol use disorder: Comment: Daily alcohol drinker. Denies any withdrawal in the past. Declines any referral for assistance. Code(s): F10.90 - Alcohol use, unspecified, uncomplicated (5) Lipoma of both upper extremities: Comment: One on the right upper arm, 3 on the left upper arm. Reports has been present for several years without change. Offered ultrasound and declined. Advised him to monitor these areas and report any changes. Otherwise these will be monitored during his annual physical exams. Code(s): D17.21 - Benign lipomatous neoplasm of skin and subcutaneous tissue of right arm; D17.22 - Benign lipomatous neoplasm of skin and subcutaneous tissue of left arm Orders: Orders 2 Comprehensive Met. Panel Today R73.01 - Impaired fasting glucose, R79.89 - Other specified abnormal findings of blood chemistry Hemoglobin A1c Today R73.01 - Impaired fasting glucose, R79.89 - Other specified abnormal findings of blood chemistry LDL Cholesterol Direct Today I73.9 - Peripheral vascular disease, unspecified Comprehensive [place]. Panel Fast 04/05/24 I73.9 - Peripheral vascular disease, unspecified, R73.01 - Impaired fasting glucose, R79.89 - Other specified abnormal findings of blood chemistry Hemoglobin A1c 04/05/24 I73.9 - Peripheral vascular disease, unspecified, R73.01 - Impaired fasting glucose, R79.89 - Other specified abnormal findings of blood chemistry Lipid Panel 04/05/24 I73.9 - Peripheral vascular disease, unspecified, R73.01 - Impaired fasting glucose, R79.89 - Other specified abnormal findings of blood chemistry Patient Instructions: Return to the office in 4 months with labs done 1 week before. Sooner if you need something. Coding Level of Care Code Est Pt Level 4 (34534) Complex EM visit Add On G2211 Diagnoses IFG (impaired fasting glucose) R73.01 Elevated LFTs R79.89 PVD (peripheral vascular disease) I73.9 Alcohol use disorder F10.90 Lipoma of both upper extremities D17.21; D17.22
== END 2023-12-29 11:28 | disposition home or self-care (01) ==
PROVIDERS: PCP Nurse Practitioner Family; Visit Provider Nurse Practitioner Family
DX: R73.01 Impaired fasting glucose (principal); R79.89 Other specified abnormal findings of blood chemistry; I73.9 Peripheral vascular disease, unspecified; F10.90 Alcohol use, unspecified, uncomplicated; D17.21 Benign lipomatous neoplasm of skin and subcutaneous tissue of right arm; D17.22 Benign lipomatous neoplasm of skin and subcutaneous tissue of left arm
CPT/HCPCS: 99214; G2211

== ENCOUNTER 2023-12-29 11:16 | Outpatient (REF) | payer OTHER, SELFPAY ==
[2023-12-29 14:49] LABS: Estimated Average Glucose 120 mg/dL; Hemoglobin A1c % 5.8 % (<6.0)
[2023-12-29 14:57] LABS: Alanine Aminotransferase 43 U/L (0-40); Albumin Level 4.3 g/dL (3.5-5.0); Alkaline Phosphatase 53 U/L (39-117); Anion Gap 13 (12-20); Aspartate Amino Transferase 29 U/L (5-37); Bilirubin Total 0.7 mg/dL (0.0-1.0); Blood Urea Nitrogen 11 mg/dL (9-16); Calcium 9.7 mg/dL (8.4-10.2); Carbon Dioxide 25 mmol/L (22-29); Chloride 107 mmol/L (96-108); Estimated Glomerular Filt Rate > 60; Glucose Random 116 mg/dL (60-115); Potassium 3.9 mmol/L (3.3-5.1); Sodium 141 mmol/L (135-145); Total Protein 7.3 g/dL (6.5-8.0)
[2023-12-30 17:04] LABS: LDL Cholesterol Direct 124 mg/dL (<100)
== END 2023-12-29 11:17 | disposition home or self-care (01) ==
LOC: HO.WFDLDS 11:16
PROVIDERS: Visit Provider Nurse Practitioner Family
DX: R79.89 Other specified abnormal findings of blood chemistry (principal); R73.01 Impaired fasting glucose; I73.9 Peripheral vascular disease, unspecified
CPT/HCPCS: 36415; 80053; 83036; 83721

== ENCOUNTER 2024-04-14 09:05 | Outpatient (AMB) | payer OTHER, SELFPAY ==
--- NOTE | 2024-04-14 09:17 | A.OFFPC_ITS ---
Vital Signs 04/14/24 09:19 Height 6 ft Weight 225 lb 2 oz BMI 30.5 BP 132/74 Blood Pressure Location Lt brachial Position Sitting Respiration 15 Pulse 61 Pulse Source Pulse Oximeter Pulse Oximetry (%) 98 Oxygen Delivery Method Room Air Intake Visit Reasons: 4 months fu HLD, PVD, IFG 30 min Intake Note: follow up Allergies No Known Allergies Allergy (Verified 04/14/24 09:33) Medication List - Last Reconciled 04/14/24 by Lisandra Sandoval, [facility]- bisacodyl (Dulcolax (bisacodyl)) 20 mg (4 x 5 mg) PO ONCE 1 day polyethylene glycol 3350 (Miralax) 238 grams PO ONCE Tobacco use date assessed: 12/29/23 Dental Screening Dental Screen Date: 09/29/23 HPI HPI Comments History of Present Illness Details 53 Y/O M newly with obesity, da maximus etoh use, PVD, IFG, elevated LFT, fatty liver dz, Health Maintenance: Colon: pending Vaccines: UTD on COVID, declines flu, Tdap 09/29/2023. Specialists: Derm GI Surgeries: None Here today for routine fu of chronic conditions. Has colon scheduled 04/30/24 Still waiting on Derm appt No hospital or ED visits Cont to drink etoh; has some occasional binging but less than last time Mood is good Having left heel pain and middle of the foot pain, worse at the end of a shift. Did get gel insoles to help. Exam: General: Well developed, well nourished, in no acute distress. Appears stated age. Lungs: Clear to auscultation bilaterally. No rales, rhonchi or wheeze noted. Good air flow in all jaffe. Heart: Regular rate and rhythm. No murmurs, click, rubs or gallops are noted. Abdomen: Bowel sounds present in all quadrants. The abdomen is soft, with no masses. No hernias are noted. Positive hepatomegaly liver edge palpable, mildly tender Pulses: Peripheral pulses are equal and palpable bilaterally. Extremities: No clubbing, cyanosis nor edema is noted. Hairless bilateral lower extremities, skin is shiny and intact with hemosiderin. Unable to replicate pain in L heel today. No pain over achilles. Skin: No rash. Turgor is good. Skin color is good. Hair and nails are without abnormalities. Areolar keratitis of the right without any other breast abnormalities noted such as discharge dimpling retraction or gynecomastia. Multiple nevi noted on trunk. Dorsum of right hand is a pale flesh colored nevi slightly raised with regular borders with scaling. Psych: Normal eye contact, affect and mood appropriate, and normal interactions. Patient is alert and appropriate to context. Plan Labs today & resulted after patient left around 1549 show normal electrolytes, renal function, improved glucose 111, hga1c improved 5.6%, elevated LFTs AST 43, ALT 64, similar lipid profile LDL 124 At this time, will cont to recommend life style mods and hold off on statin. Exercises, heel and arch support for left foot plantar fasciitis. If pain continues could refer for steroid injection. Continue to work on alcohol reduction and cessation Repeat labs order placed, to be done 1 week before CPE Return to office in September for complete physical exam, sooner as needed This note is constructed using voice recognition software. While every effort has been made to ensure accuracy in emergency preparedness coordinator, still errors may have been included Sometimes, these errors may affect the content or meaning of the given sentence . Total time spent caring for the patient today was 31 minutes. This includes time spent before the visit reviewing the chart, time spent during the visit, and time spent after the visit on documentation [facility] Medical History (Updated 04/14/24 @ 15:51 by Lisandra Sandoval [facility]) Elevated LFTs PVD (peripheral vascular disease) Alcohol use disorder Surgical History History of tonsillectomy Family History Father Hypertension Mother Ovarian cancer Maternal Grandmother Lung cancer Maternal Grandfather Lung cancer Paternal Grandfather Hypertension Cardiac disease Brother Alcoholism Sister Hypertension Social History Household Members: Children Household Members Other:: daughter Housing: Apartment Are you a primary career education teacher to a significant other at home: No Do you presently have visiting nurse or other home services: No 75 years or older and lives alone: No Alcohol intake: current Alcohol intake frequency: 3 or more drinks per day Alcohol type: beer and hard liquor Comment: Patient drinks about 5 days per week Patient Tobacco Use Status: Never used Tobacco e-Cigarette/Vaping Use: Never Used service: No Current occupational status: employed Current occupation: [employer] in [place], [place], [place] Current occupational exposures/hazards: Yes Sexual orientation: Unable to collect Gender identity: Unable to collect Cognitive needs: No Hearing needs: No Vision needs: No (Patient wears glasses) Questionnaire Thrive Questionnaire Date Thrive assessed: 09/29/23 DONNIE-7 AMB Questionnaire DONNIE-7 Date DONNIE - 7 assessed: 09/29/23 Source: Developed by Drs. Horacio Donnelly, Dina Mcclellan, Salvador Bermudez and colleagues, with an educational chasity from [employer]. Physical exam (Primary Care) Vital Signs: Last Vital Signs Pulse 61 04/14/24 09:19 Resp 15 04/14/24 09:19 BP 132/74 04/14/24 09:19 Pulse Ox 98 04/14/24 09:19 Oxygen Delivery Method Room Air 04/14/24 09:19 BMI result Body Mass Index 30.5 Tobacco/Smoking Status: Tobacco use Status Tobacco use date assessed 12/29/23 04/14/24 09:21 Patient Tobacco Use Status Never used Tobacco 04/14/24 09:21 e-Cigarette/Vaping Use Never Used 04/14/24 09:21 Thrive Assessment: Date of Thrive Assessment Date Thrive assessed 09/29/23 04/14/24 09:21 Assessment and Plan Assessment & Plan (1) PVD (peripheral vascular disease): Comment: Based on physical exam findings hairless bilateral lower extremities and shiny skin. Repeat LDL today. Encouraged to monitor skin integrity and report any open areas immediately. Code(s): I73.9 - Peripheral vascular disease, unspecified (2) IFG (impaired fasting glucose): Comment: Repeat CMP and hemoglobin A1c today to monitor trending. Code(s): R73.01 - Impaired fasting glucose (3) Alcohol use disorder: Comment: Daily alcohol drinker. Denies any withdrawal in the past. Declines any referral for assistance. Code(s): F10.90 - Alcohol use, unspecified, uncomplicated (4) Fatty liver: Comment: ABD 11/2023 1. There is generalized increase in hepatic echotexture, consistent with fatty infiltration or hepatocellular disease. Please correlate clinically. No focal hepatic mass or intrahepatic biliary dilatation is seen. 2. Liver elastography: In the absence of other known clinical signs, measurements rule out compensated advanced chronic liver disease. If there are known clinical signs, further testing may be needed for confirmation. 3. Incidental note is made of tiny cholesterol polyps, the largest measuring 3 mm. Shear wave liver elastography median stiffness is 1.38 m/s (reference: normal median stiffness is 1.3 m/s or less). Repeat LFTs today. Consult with GI complete. Continue to encourage and support alcohol reduction and cessation. Code(s): K76.0 - Fatty (change of) liver, not elsewhere classified (5) Plantar fascial fibromatosis of left foot: Code(s): M72.2 - Plantar fascial fibromatosis (6) Elevated LFTs: Comment: ABD US 11/2023 1. There is generalized increase in hepatic echotexture, co nsistent with fatty infiltration or hepatocellular disease. Please correlate clinically. No focal hepatic mass or intrahepatic biliary dilatation is seen. 2. Liver elastography: In the absence of other known clinical signs, measurements rule out compensated advanced chronic liver disease. If there are known clinical signs, further testing may be needed for confirmation. 3. Incidental note is made of tiny cholesterol polyps, the largest measuring 3 mm. Shear wave liver elastography median stiffness is 1.38 m/s (reference: normal median stiffness is 1.3 m/s or less). Repeat LFTs today. Consult with GI complete. Continue to encourage and support alcohol reduction and cessation. Code(s): R79.89 - Other specified abnormal findings of blood chemistry (7) Hyperlipidemia: Code(s): E78.5 - Hyperlipidemia, unspecified Orders: Orders 2 Hemoglobin A1c 09/11/24 E78.5 - Hyperlipidemia, unspecified, F10.90 - Alcohol use, unspecified, uncomplicated, R73.01 - Impaired fasting glucose, R79.89 - Other specified abnormal findings of blood chemistry PSA, Ultra Sensitive 09/11/24 E78.5 - Hyperlipidemia, unspecified, F10.90 - Alcohol use, unspecified, uncomplicated, R73.01 - Impaired fasting glucose, R79.89 - Other specified abnormal findings of blood chemistry TSH reflex Free T4 09/11/24 E78.5 - Hyperlipidemia, unspecified, F10.90 - Alcohol use, unspecified, uncomplicated, R73.01 - Impaired fasting glucose, R79.89 - Other specified abnormal findings of blood chemistry Lipid Panel 09/11/24 E78.5 - Hyperlipidemia, unspecified, F10.90 - Alcohol use, unspecified, uncomplicated, R73.01 - Impaired fasting glucose, R79.89 - Other specified abnormal findings of blood chemistry Comprehensive [place]. Panel Fast 09/11/24 E78.5 - Hyperlipidemia, unspecified, F10.90 - Alcohol use, unspecified, uncomplicated, R73.01 - Impaired fasting glucose, R79.89 - Other specified abnormal findings of blood chemistry Microalbumin, Random (w Creat) 09/11/24 E78.5 - Hyperlipidemia, unspecified, F10.90 - Alcohol use, unspecified, uncomplicated, R73.01 - Impaired fasting glucose, R79.89 - Other specified abnormal findings of blood chemistry Review Flu Vaccine not done: patient reason Coding Level of Care Code Est Pt Level 4 (48393) Diagnoses PVD (peripheral vascular disease) I73.9 IFG (impaired fasting glucose) R73.01 Alcohol use disorder F10.90 Fatty liver K76.0 Plantar fascial fibromatosis of left foot M72.2 Elevated LFTs R79.89 Hyperlipidemia E78.5
[2024-04-14 09:19] VITALS: BP 132/74; PULSE 61; RESP 15; O2SAT 98; BMI 30.5
== END 2024-04-14 09:54 | disposition home or self-care (01) ==
PROVIDERS: PCP Nurse Practitioner Family; Visit Provider Nurse Practitioner Family
DX: I73.9 Peripheral vascular disease, unspecified (principal); R73.01 Impaired fasting glucose; F10.90 Alcohol use, unspecified, uncomplicated; K76.0 Fatty (change of) liver, not elsewhere classified; M72.2 Plantar fascial fibromatosis; R79.89 Other specified abnormal findings of blood chemistry; E78.5 Hyperlipidemia, unspecified
CPT/HCPCS: 99214

== ENCOUNTER 2024-04-14 09:50 | Outpatient (REF) | payer OTHER, SELFPAY ==
[2024-04-14 11:28] LABS: Estimated Average Glucose 114 mg/dL; Hemoglobin A1c % 5.6 % (<6.0)
[2024-04-14 11:54] LABS: Alanine Aminotransferase 64 U/L (0-40); Albumin Level 4.4 g/dL (3.5-5.0); Alkaline Phosphatase 55 U/L (39-117); Anion Gap 14 (12-20); Aspartate Amino Transferase 43 U/L (5-37); Bilirubin Total 0.8 mg/dL (0.0-1.0); Blood Urea Nitrogen 9 mg/dL (9-16); Calcium 9.8 mg/dL (8.4-10.2); Carbon Dioxide 26 mmol/L (22-29); Chloride 105 mmol/L (96-108); Cholesterol 199 mg/dL (<200); Estimated Glomerular Filt Rate > 60; Glucose Fasting 111 mg/dL (60-99); HDL Cholesterol 48 mg/dL (>40); LDL Cholesterol Calculated 124 mg/dL (<100); Potassium 3.7 mmol/L (3.3-5.1); Sodium 141 mmol/L (135-145); Total Protein 7.5 g/dL (6.5-8.0); Triglycerides 137 mg/dL (<150)
== END 2024-04-14 09:51 | disposition home or self-care (01) ==
LOC: HO.WFDLDS 09:50
PROVIDERS: Visit Provider Nurse Practitioner Family
DX: R79.89 Other specified abnormal findings of blood chemistry (principal); R73.01 Impaired fasting glucose; I73.9 Peripheral vascular disease, unspecified
CPT/HCPCS: 36415; 80053; 80061; 83036

== ENCOUNTER 2024-10-01 09:13 | Day surgery (SDC) | payer OTHER, SELFPAY ==
[2024-09-29 14:16] VITALS: BMI 30.5
--- NOTE | 2024-10-01 09:49 | MHC.SHP ---
Pre-Procedural Eval Section A - 24 Hr Update-Section A only Date of Service: 10/01/24 The patient is an INPATIENT: No The patient has been examined within 24 hours of the surgical procedure. The History & Physical has been completed within 30 days and I have reviewed it.: No Section B - Complete if H&P > 30 days Chief Complaint: Colon cancer screening Relevant Family History (Specify if Yes): No Relevant Social History: None Present Medications: see Short Stay Collaborative assessment Medical History: Significant History (Hyperlipidemia, peripheral vascular disease, elevated LFTs, fatty liver) History of Previous Operations: Relevant previous surgery/procedure and date(s) (History of tonsillectomy) Allergies: Allergies Allergy/AdvReac Type Severity Reaction Status Date / Time No Known Allergies Allergy Verified 04/14/24 09:33 Review of Systems Sugical H&P ROS: Negative: Constitution, Cardiovascular, Respiratory and Gastrointestinal Exam Surgical H&P Exam: Normal: Heart, Normal: Lungs, Normal: Extremities and Normal: Abdomen Plan Diagnosis/Plan: Unchanged I have reviewed the history and physical and performed a pertinent physical examination on my patient. No changes have occurred unless specified. Time Spent With Patient Time: Total time managing care of this patient today ____ minutes.
[2024-10-01 10:04] VITALS: BP 128/75; PULSE 69; RESP 16; TEMP 36.5; O2SAT 98
--- NOTE | 2024-10-01 10:34 | HO.ANESPROP2 ---
HPI - Anesthesia Eval Consult details Narrative: 54 yo male patient for Colonoscopy PMFSH Active Problems Active Problems: All Active Problems Hyperlipidemia (Acute) Fatty liver (Acute) Lipoma of both upper extremities (Acute) Elevated LFTs (Acute) IFG (impaired fasting glucose) (Acute) Alcohol use disorder (Acute)2-4 drinks at least 5x per week PVD (peripheral vascular disease) (Acute)- discolored lower extremities Obesity (BMI 30-39.9) (Acute) Numerous moles (Acute) Areolar keratitis (Acute) Denies PUJA Past Medical History Medical History Elevated LFTs PVD (peripheral vascular disease) Alcohol use disorder Family History Family History Father Hypertension Mother Ovarian cancer Maternal Grandmother Lung cancer Maternal Grandfather Lung cancer Paternal Grandfather Hypertension Cardiac disease Brother Alcoholism Sister Hypertension Family history of problems with anesthesia: No Surgical History Surgical History History of tonsillectomy History of Problems with Anesthesia: No Social History Social History Household Members: Children Household Members Other:: daughter Housing: Apartment Are you a primary acute care clinical nurse specialist to a significant other at home: No Do you presently have visiting nurse or other home services: No Alcohol intake: current Alcohol intake frequency: 3 or more drinks per day Alcohol type: beer and hard liquor Comment: Patient drinks about 5 days per week Patient Tobacco Use Status: Never used Tobacco e-Cigarette/Vaping Use: Never Used Second Hand Smoke Exposure: No Use of substances other than those prescribed or required for medical reasons: No Have you been hit, kicked, punched, or otherwise hurt by someone within the past year? If so, by whom?: No Are you DNR?: No Advance Directives: No Advance Directives Information Provided: Yes Advance Directives on File: No Recently lost weight without trying: No Eating poorly because of decreased appetite: No Nutrition Risks: No Nutritional Risk Poor oral hygiene: No service: No Current occupational status: employed Current occupation: [employer] in [place], [place], [email or web address] Current occupational exposures/hazards: Yes Sexual orientation: Unable to collect Gender identity: Unable to collect Cognitive needs: No Hearing needs: No Vision needs: No (Patient wears glasses) Meds Allergies Allergy/AdvReac Type Severity Reaction Status Date / Time No Known Allergies Allergy Verified 04/14/24 09:33 Exam Height,Weight and Vital Signs: Height 6 ft Weight 100.3 kg Last Vital Signs Temp 97.7 F 10/01/24 10:04 Pulse 69 10/01/24 10:04 Resp 16 10/01/24 10:04 BP 128/75 10/01/24 10:04 Pulse Ox 98 10/01/24 10:04 O2 Del Method Room Air 10/01/24 10:04 Airway Mallampati Class: IV (Receding chin) TM Dist: >3cm Neck ROM: Full Loose/Missing/Broken Teeth: Yes (Missing tooth bottom left- extracted. Denies broken or loose teeth) Heart: RRR Lungs: CTAB Assessment and Plan Assessment Anesthesia Assessment: Anesthesia Plan Discussed and Chart Reviewed Final Anesthetic Review Family History of Problems with Anesthesia: No History of Problems with Anesthesia: No NPO: Yes ASA Class: III Final Preanesthetic Review: No Changes in Pt Med Stat, Meds/Allgs Chart Reviewed, Consent Obtained/Reviewed and Anes Risks/Benef Reviewed Patient Risk: Intermediate Procedure Risk: Low Assessment/Block/Sedation in SS: Assess/Block/Sedation-SS Anesthetic Plan Anesthetic Plan: TIVA Disposition: Standard PACU
[2024-10-01] MEDS: Lactated Ringers 1,000 ML 100 ML IVCONT (11:05)
--- NOTE | 2024-10-01 12:40 | HO.OPN-COLON ---
Colonoscopy Operative Note Operative Note Date of Service: 10/01/24 Narrative: COLONOSCOPY TILL CECUM WITH BIOPSY, SNARE POLYPECTOMY AND HEMOCLIP PLACEMENT Pre-op diagnosis: Colon cancer screening (First colonoscopy). Post-op diagnosis:? Colon polyps, Diverticulosis, hemorrhoids Endoscopist:? Yokasta Chavez MD Anesthesia:?MAC Consent: Indications for the procedure and potential complications of bleeding, perforation, reaction to medications and missed diagnosis were discussed with the patient and informed consent was obtained. Instrument: Olympus CF H 190 L variable stiffness adult colonoscope Monitoring: Vital signs and clinical assessment, intermittent blood pressure monitoring, continuous EKG monitoring, Pulse oximetry and Carbon Dioxide monitoring were done throughout the procedure. Please see anesthesia flowsheet. Colon withdrawl time was 22 minutes. Procedure: The patient was placed in the left lateral decubitis position and pre-procedure medications were administered. After a digital rectal examination of the ano-rectum, the video colonoscope was inserted into the rectum and advanced through the colon to the cecum. The colonoscope was slowly withdrawn in a retrograde panoramic fashion and the colon mucosa was carefully examined including a retroflexed view of the rectum. Findings and interventions are described below. Procedure Difficulty: without difficulty Findings: Terminal Ileum: Not evaluated Cecum: Normal Ascending Colon: A 12-15 mm sessile polyp in the proximal AC overlying a fold. Polyp was removed with a stiff hot snare and polypectomy site was closed with 2 hemoclips Transverse Colon: A 4-5 mm sessile polyp - removed with a cold biopsy. Descending Colon: Moderate diverticulosis Sigmoid Colon: Moderate diverticulosis Rectum: Normal Ano-rectum: Moderate internal hemorrhoids Colon preparation: Good after some irrigation. [place] Bowel Preparation Scale Right colon; 2 Transverse colon: 2 Left colon; 2 (0 = Unprepared colon segment with mucosa not seen due to solid stool that cannot be cleared. 1 = Portion of mucosa of the colon segment seen, but other areas of the colon segment not well seen due to staining, residual stool and/or opaque liquid. 2 = Minor amount of residual staining, small fragments of stool and/or opaque liquid, but mucosa of colon segment seen well. 3 = Entire mucosa of colon segment seen well with no residual staining, small fragments of stool or opaque liquid) Impression and Post Procedure Diagnosis: Colonoscopy Findings: One medium sized and one small polyps were removed Moderate diverticulosis seen in the left colon Moderate hemorrhoids on retroflexed exam. Plan: I will send a letter with biopsy results Repeat Colonoscopy in 3-5 years if polyps are adenomatous and 10 year if polyps are hyperplastic. Above findings were reviewed with the patient and relevant handouts were given and the discharge area. BIOPSIES SHOWED: A. Colon, ascending, polypectomy: Fragments of tubular adenoma; negative for high-grade dysplasia or carcinoma. B. Colon, transverse, polypectomy: Colonic mucosa with mild surface hyperplastic changes. Letter sent advising repeat colon in 3 years. Patient placed on the colonoscopy recall list.
[2024-10-01 12:42] VITALS: BP 106/69; PULSE 84; RESP 16; TEMP 36.3; O2SAT 97
[2024-10-01 12:57] VITALS: BP 131/80; PULSE 56; RESP 16; TEMP 36.2; O2SAT 97
--- NOTE | 2024-10-01 13:15 | PC.NURSE ---
All discharge instructions completed by amara dean rn.
== END 2024-10-01 13:20 | disposition home or self-care (01) ==
PROVIDERS: PCP Nurse Practitioner Family; Visit Provider Internal Medicine Gastroenterology
PROC: 0DJD8ZZ Inspection of Lower Intestinal Tract, Via Natural or Artificial Opening Endoscopic (ICD-10-PCS; CPT 45378; principal; 2024-10-01 10:30)
DX: Z12.11 Encounter for screening for malignant neoplasm of colon (principal); D12.2 Benign neoplasm of ascending colon; K63.5 Polyp of colon; K57.30 Diverticulosis of large intestine without perforation or abscess without bleeding; K64.8 Other hemorrhoids; K76.0 Fatty (change of) liver, not elsewhere classified; R74.8 Abnormal levels of other serum enzymes; E78.5 Hyperlipidemia, unspecified; I73.9 Peripheral vascular disease, unspecified; F10.90 Alcohol use, unspecified, uncomplicated
CPT/HCPCS: 45385; 45380; 88305; J2003; J2704

== ENCOUNTER → 2024-10-01 09:13 | Outpatient (BNV) | payer OTHER, SELFPAY | PROVIDERS: PCP Nurse Practitioner Family; Visit Provider Internal Medicine Gastroenterology | DX: Z12.11 Encounter for screening for malignant neoplasm of colon (principal); D12.2 Benign neoplasm of ascending colon; D12.3 Benign neoplasm of transverse colon; K57.90 Diverticulosis of intestine, part unspecified, without perforation or abscess without bleeding; K64.8 Other hemorrhoids | CPT/HCPCS: 45380; 45385 ==

== ENCOUNTER 2024-10-11 07:49 | Outpatient (AMB) | payer OTHER, SELFPAY ==
--- NOTE | 2024-10-11 07:53 | A.OFFPC_ITS ---
Vital Signs 10/11/24 08:05 Height 6 ft Weight 226 lb 2 oz BMI 30.7 BP 122/70 Blood Pressure Location Lt brachial Position Sitting Respiration 12 Pulse 61 Pulse Source Pulse Oximeter Temp 96.9 F Temp Source Oral Pulse Oximetry (%) 98 Oxygen Delivery Method Room Air Intake Visit Reasons: CPE Intake Note: annual cpe [employer] Required: No Allergies No Known Allergies Allergy (Verified 10/11/24 07:59) Medication List - Last Reconciled 10/11/24 by JEAN-PAUL Abdullahi No Known Home Meds Tobacco use date assessed: 10/11/24 Dental Screening Dental Screen Date: 10/11/24 Did you have a dental visit in the last 12 months?: Yes Did you have a dental problem in the last 6 months where you did not have access to dental care?: No Was dental information given to patient?: Patient has dentist HPI HPI Comments History of Present Illness Details 54 Y/O M newly with obesity, da maximus etoh use, PVD, IFg, elevated LFT, fatty liver dz, diverticulosis 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 Health Maintenance: Colon: 09/2024 [facility] [place] Tubular adenoma repeat 3 years Vaccines: UTD on COVID, declines flu, Tdap 09/29/2023 Specialists: Derm never did fu , needs new referral GI Surgeries: None - The patient is a 54-year-old male pres enting for a complete physical exam New c/o lower back pain. - The patient reports low back pain for ten years with episodic worsening. - Recently developed numbness and weakne ss in the right leg. - Temporary relief from symptoms was ach ieved using a heating pad. - Symptoms onset without a new injury. - Denies changes in bowel or bladder con trol Social History - Works two jobs, mentions possible reti rement planning within a year or two. - Reports reduction in alcohol consumpti on to red wine, avoiding beer and whiskey. Review of Systems - Reports stable body weight and daily f ood intake. - Handled a recent cold sore effectively with topical treatments. - itchiness due to winter dry skin. - Gastrointestinal: Denies abdominal teofilo n; slight tenderness under ribcage noted previously. - Musculoskeletal: Reports on-and-off lo w back pain with recent right leg numbness and weakness. - Neurological: Denies bladder dysfuncti on, numbness or tingling in pelvic area. Exam: General: Well developed, well nourished, in no acute distress. Appears stated age. HEENT: cold sore r tarsha border otherwise WNL Lungs: Clear to auscultation bilaterally. No rales, rhonchi or wheeze noted. Good air flow in all jaffe. Heart: Regular rate and rhythm. No murmurs, click, rubs or gallops are noted. Abdomen: Bowel sounds present in all quadrants. The abdomen is soft, with no masses. No hernias are noted. Positive hepatomegaly liver edge palpable, mildly tender Pulses: Peripheral pulses are equal and palpable bilaterally. Extremities: No clubbing, cyanosis nor edema is noted. Hairless bilateral lower extremities, skin is shiny and intact with hemosiderin. Skin: No rash. Turgor is good. Skin color is good. Hair and nails are without abnormalities. Areolar keratitis of the right without any other breast abnormalities noted such as discharge dimpling retraction or gynecomastia. Multiple nevi noted on trunk. Dorsum of right hand is a pale flesh colored nevi slightly raised with regular borders with scaling. Neuro: DEJESUS x 4, normal strength tone and reflexes, CN intact, neck FROM. Pain with SLR on R in hamstring and right low back otherwise normal exam Psych: Normal eye contact, affect and mood appropriate, and normal interactions. Patient is alert and appropriate to context. Results - Labs: Hemoglobin A1c at 6.0 - increase d from previous Discussion Notes Today, I reviewed with the patient the current symptoms related to his lower back pain and potential sciatica, emphasizing the need for a lumbar spine MRI to assess the condition and eliminate any concerns of a slipped disc or nerve impingement. We discussed the implications of alcohol intake on liver health and prediabetes, suggesting the need to reduce intake further. I advised maintaining a low-sugar diet and suggested a potential referral to a platinumsmith for nutritional support. The patient was informed of the dermatology referral process and plans for blood work to monitor prediabetes. Instructions were provided for scheduling upcoming diagnostics and necessary follow-ups. Assessment and Plan 1. Low back pain with symptoms suggestiv e of sciatica: I have ordered an MRI of the lumbar spine to investigate potential nerve impingement. The plan includes addressing the suspected radiculopathy based on further findings. My office will schedule phone f/u once results are back. Edu on reasons to seek medical care. 2. Prediabetes: The patient's HbA1c has increased; dietary adjustments are needed to lower sugar intake. A referral to a platinumsmith is suggested to help further assess and manage dietary habits. 3. Obesity: The patient's weight is stab le, and I have recommended continuing to monitor dietary intake and make necessary adjustments to manage weight efficiently. 4. Etoh use - cessation/reduction encour agd; offered and declined [facility] referral. Patient Instructions - Follow up with the MRI appointment for your lower back. - Reduce sugar intake; consider dietary changes particularly with yogurt and red wine. - Continue monitoring weight and maintai n a balanced diet. - Schedule an appointment with a dietici an for careful dietary planning. - Attend the dermatology referral appoin [facility] as soon as it is scheduled. - Complete blood work as instructed at [facility] lab following this visit. - RTO 6 months with labs 1 week before r outine fu, sooner PRN Consent I discussed with the patient the rationale for obtaining a lumbar spine MRI to evaluate the cause of lumbar radiculopathy symptoms. I outlined the importance of addressing nerve impingement, which might require different treatment strategies based on imaging results. The patient agreed to proceed with the MRI. Verbal consent was obtained from the patient for all discussed diagnostics and consultations. Patient was informed and verbally consented to the use of an ambient scribe for clinic note documentation during this visit. [facility] Medical History Elevated LFTs PVD (peripheral vascular disease) Alcohol use disorder Surgical History History of tonsillectomy Family History Father Hypertension Mother Ovarian cancer Maternal Grandmother Lung cancer Maternal Grandfather Lung cancer Paternal Grandfather Hypertension Cardiac disease Brother Alcoholism Sister Hypertension Social History Household Members: Children Household Members Other:: daughter Housing: Apartment Are you a primary rn transitional care to a significant other at home: No Do you presently have visiting nurse or other home services: No 75 years or older and lives alone: No Alcohol intake: current Alcohol intake frequency: 3 or more drinks per day Alcohol type: beer and hard liquor Comment: Patient drinks about 5 days per week Patient Tobacco Use Status: Never used Tobacco e-Cigarette/Vaping Use: Never Used Second Hand Smoke Exposure: No service: No Current occupational status: employed Current occupation: [employer] in [place], [place], [employer] Current occupational exposures/hazards: Yes Sexual orientation: Unable to collect Gender identity: Unable to collect Cognitive needs: No Hearing needs: No Vision needs: No (Patient wears glasses) Questionnaire PHQ-9 Over the last 2 weeks, how often have you been bothered by any of the following problems? 1. Little interest or pleasure in doing things: not at all 2. Feeling down, depressed, or hopeless: not at all 3. Trouble falling or staying asleep, or sleeping too much: not at all 4. Feeling tired or having little energy: not at all 5. Poor appetite or overeating: not at all 6. Feeling bad about yourself - or that you are a failure or have let yourself or your family down: not at all 7. Trouble concentrating on things, such as reading the newspaper or watching television: not at all 8. Moving or speaking so slowly that other people could have noticed. Or the opposite - being so fidgety or restless that you have been moving around a lot more than usual: not at all 9. Thoughts that you would be better off or of hurting yourself in some way: not at all Total score: 0 Depression Screening Interpretation: Negative Depression Screening Done: Yes 89171 - PHQ-9 Billing: Yes Source: Developed by Drs. Horacio Donnelly, Dina Mcclellan, Salvador Bermudez and colleagues, with an educational chasity from [employer]. Thrive Questionnaire Date Thrive assessed: 10/11/24 I am a: Patient What is your living situation today?: I have a steady place to live Within the past 12 months, did the food you bought not last and you didn't have the money to get more?: Never true Within the past 12 months, did you worry whether your food would run out before you got money to buy more?: I choose not to answer this question Do you have trouble paying for medicines?: No Do you have trouble getting transportation to medical appointments?: No Do you have trouble paying your heating and electricity bill?: I choose not to answer this question Do you have trouble taking care of your child, family member or friend?: No Do you have trouble with day-to-day activities such as bathing, preparing meals, shopping, managing finances, etc.?: No Are you currently unemployed and looking for a job?: No Are you interested in more education?: No Please select the resources that you would like help with: None Currently or been in a relationship where the following occur: No concerns reported THRIVE Score: 0 AUDIT C Alcohol Use Questionnaire (AUDIT-C) 1. How often do you have a drink containing alcohol?: 4 or more times a week 2. How many drinks containing alcohol do you have on a typical day when you are drinking?: 3 or 4 3. How often do you have six or more drinks on one occasion?: Never Total Score: 5 Score Reviewed/Action Taken: Yes DONNIE-7 AMB Questionnaire DONNIE-7 Date DONNIE - 7 assessed: 10/11/24 Feeling nervous, anxious, or on edge: 0 = Not at all Not being able to stop or control worryin = Not at all Worrying too much about different things: 0 = Not at all Trouble relaxin = Not at all Being so restless that it is hard to sit still: 0 = Not at all Becoming easily annoyed or irritable: 0 = Not at all Feeling afraid as if something awful might happen: 0 = Not at all Total DONNIE-7 score (0-4 normal; 5-9 mild; 10-14 moderate; 15-21 severe): 0 Source: Developed by Drs. Horacio Donnelly, Dina Mcclellan, Salvador Bermudez and colleagues, with an educational chasity from [employer]. DONNIE-7 Assessment Billing DONNIE-7 Assessment Tool: DONNIE-7 Assessment 59441 Physical exam (Primary Care) Vital Signs: Last Vital Signs Temp 96.9 F 10/11/24 08:05 Pulse 61 10/11/24 08:05 Resp 12 10/11/24 08:05 BP 122/70 10/11/24 08:05 Pulse Ox 98 10/11/24 08:05 Oxygen Delivery Method Room Air 10/11/24 08:05 BMI result Body Mass Index 30.7 BMI Assessment/Plan discussion: High BMI High, discussed plan: lifestyle Tobacco/Smoking Status: Tobacco use Status Tobacco use date assessed 10/11/24 10/11/24 08:01 Patient Tobacco Use Status Never used Tobacco 10/11/24 07:55 e-Cigarette/Vaping Use Never Used 10/11/24 07:55 PHQ-9: PHQ-9 Score PHQ-9: Total score 0 10/11/24 08:01 Depression Screening Interpretation: Negative Thrive Assessment: Date of Thrive Assessment Date Thrive assessed 10/11/24 10/11/24 08:01 Currently or been in a relationship where the following occur: No concerns reported Results AMB Hemoglobin A1c AMB Hemoglobin A1c 6.0 % Last Edit by Sigifredo Dominguez on 10/11/24 08:16 Coding Level of Care Code Est Pt Prev Care 40-64y(73839) Diagnoses Encounter for general adult medical examination without abnormal findings Z00.00 Alcohol use disorder F10.90 Elevated LFTs R79.89 Fatty liver K76.0 Mixed hyperlipidemia E78.2 Hyperlipidemia type: mixed hyperlipidemia IFG (impaired fasting glucose) R73.01 PVD (peripheral vascular disease) I73.9 Lumbar back pain with radiculopathy affecting right lower extremity M54.16 Areolar keratitis of right eye 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 Denies any withdrawal in the past. Declines any referral for assistance. Code(s): F10.90 - Alcohol use, unspecified, uncomplicated Category: Medical (3) Elevated LFTs: Comment: ABD US 11/2023 1. There is generalized increase in hepatic echotexture, consis tent with fatty infiltration or hepatocellular disease. Please correlate clinically. No focal hepatic mass or intrahepatic biliary dilatation is seen. 2. Liver elastography: In the absence of other known clinical signs, measurements rule out compensated advanced chronic liver disease. If there are known clinical signs, further testing may be needed for confirmation. 3. Incidental note is made of tiny cholesterol polyps, the largest measuring 3 mm. Shear wave liver elastography median stiffness is 1.38 m/s (reference: normal median stiffness is 1.3 m/s or less). Repeat LFTs today. Consult with GI complete. Continue to encourage and support alcohol reduction and cessation. Code(s): R79.89 - Other specified abnormal findings of blood chemistry Category: Medical (4) Fatty liver: Comment: [facility] US 11/2023 1. There is generalized increase in hepatic echotexture, consistent with fatty infiltration or hepatocellular disease. Please correlate clinically. No focal hepatic mass or intrahepatic biliary dilatation is seen. 2. Liver elastography: In the absence of other known clinical signs, measurements rule out compensated advanced chronic liver disease. If there are known clinical signs, further testing may be needed for confirmation. 3. Incidental note is made of tiny cholesterol polyps, the largest measuring 3 mm. Shear wave liver elastography median stiffness is 1.38 m/s (reference: normal median stiffness is 1.3 m/s or less). Repeat LFTs today. Consult with GI complete. Continue to encourage and support alcohol reduction and cessation. Code(s): K76.0 - Fatty (change of) liver, not elsewhere classified Category: Medical (5) Hyperlipidemia: Code(s): E78.5 - Hyperlipidemia, unspecified Category: Medical Qualifiers: Hyperlipidemia type: mixed hyperlipidemia Qualified Code(s): E78.2 - Mixed hyperlipidemia (6) IFG (impaired fasting glucose): Code(s): R73.01 - Impaired fasting glucose Category: Medical (7) PVD (peripheral vascular disease): Comment: Based on physical exam findings hairless bilateral lower extremities and shiny skin. Repeat LDL today. Encouraged to monitor skin integrity and report any open areas immediately. Code(s): I73.9 - Peripheral vascular disease, unspecified Category: Medical (8) Lumbar back pain with radiculopathy affecting right lower extremity: Code(s): M54.16 - Radiculopathy, lumbar region Category: Medical (9) Areolar keratitis: Comment: Refer to dermatology for further evaluation and treatment Code(s): H16.119 - Macular keratitis, unspecified eye Category: Medical Qualifiers: Laterality: right Qualified Code(s): H16.111 - Macular keratitis, right eye (10) Numerous moles: Comment: Refer to dermatology for further evaluation and treatment Code(s): D22.9 - Melanocytic nevi, unspecified Category: Medical (11) Obesity (BMI 30-39.9): Comment: Lifestyle modifications and ETOH reduction encouraged Code(s): E66.9 - Obesity, unspecified Category: Medical Plan . Orders: Orders Comprehensive [place]. Panel Fast 6 Months E78.5 - Hyperlipidemia, unspecified, F10.90 - Alcohol use, unspecified, uncomplicated, K76.0 - Fatty (change of) liver, not elsewhere classified, R73.01 - Impaired fasting glucose, R79.89 - Other specified abnormal findings of blood chemistry Vitamin B12 and Folate 6 Months E78.5 - Hyperlipidemia, unspecified, F10.90 - Alcohol use, unspecified, uncomplicated, K76.0 - Fatty (change of) liver, not elsewhere classified, R73.01 - Impaired fasting glucose, R79.89 - Other specified abnormal findings of blood chemistry AMB Hemoglobin A1c Today Z13.9 - Encounter for screening, unspecified MR lumbar spine wo con Today M54.16 - Radiculopathy, lumbar region Complete Blood Count no Diff 6 Months E78.5 - Hyperlipidemia, unspecified, F10.90 - Alcohol use, unspecified, uncomplicated, K76.0 - Fatty (change of) liver, not elsewhere classified, R73.01 - Impaired fasting glucose, R79.89 - Other specified abnormal findings of blood chemistry Lipid Panel 6 Months E78.5 - Hyperlipidemia, unspecified, F10.90 - Alcohol use, unspecified, uncomplicated, K76.0 - Fatty (change of) liver, not elsewhere classified, R73.01 - Impaired fasting glucose, R79.89 - Other specified abnormal findings of blood chemistry Referrals Dermatology Referral D22.9 - Melanocytic nevi, unspecified, H16.111 - Macular keratitis, right eye Nutrition/Dietitian Referral E78.5 - Hyperlipidemia, unspecified, R73.01 - Impaired fasting glucose, R79.89 - Other specified abnormal findings of blood chemistry Patient Instructions: Health screenings for men You should visit your health care provider regularly, even if you feel healthy. The purpose of these visits is to: Screen for medical issues Assess your risk for future medical problems Encourage a healthy lifestyle Update vaccinations and other preventive care services Help you get to know your provider in case of an illness Information Even if you feel fine, you should still see your provider for regular checkups. These visits can help you avoid problems in the future. For example, the only way to find out if you have high blood pressure is to have it checked regularly. High blood sugar and high cholesterol level also may not have any symptoms in the early stages. Simple blood tests can check for these conditions. There are specific times when you should see your provider or receive specific health screenings. The [place] Preventive Services Task Force publishes a list of recommended screenings. Below are screening guidelines for men ages 40 to 64. BLOOD PRESSURE SCREENING Have your blood pressure checked at least once every year. Watch for blood pressure screenings in your area. Ask your provider if you can stop in to have your blood pressure checked. Ask your provider if you need your blood pressure checked more often if: You have diabetes, heart disease, kidney problems, or are overweight or have certain other health conditions You have a first-degree relative with high blood pressure You are Black Your blood pressure top number is from 120 to 129 mm Hg, or the bottom number is from 70 to 79 mm Hg If the top number is 130 mm Hg or greater or the bottom number is 80 mm Hg or greater, this is considered stage 1 hypertension. Schedule an appointment with your provider to learn how you can lower your blood pressure. Effects of age on blood pressure CHOLESTEROL SCREENING Cholesterol screening should begin at age 35 for men with no known risk factors for coronary heart disease. Repeat cholesterol screening should take place: Every 5 years for men with normal cholesterol levels More often if changes occur in lifestyle (including weight gain and diet) More often if you have diabetes, heart disease, kidney problems, or certain other conditions COLORECTAL CANCER SCREENING If you are under age 45, talk to your provider about getting screened. You may need to be screened if you have a strong family history of colon cancer or polyps. Screening may also be considered if you have risk factors such as a history of inflammatory bowel disease or polyps. If you are age 45 to 75, you should be screened for colorectal cancer. There are several screening tests available: A stool-based fecal occult blood (gFOBT) or fecal immunochemical test (FIT) every year A stool sDNA test every 1 to 3 years Flexible sigmoidoscopy every 5 years or every 10 years with stool testing FIT done every year CT colonography (virtual colonoscopy) every 5 years Colonoscopy every 10 years You may need a colonoscopy more often if you have risk factors for colorectal cancer, such as: Ulcerative colitis A personal or family history of colorectal cancer A history of growths in your colon called adenomatous polyps DENTAL EXAM Go to the dentist once or twice every year for an exam and cleaning. Your dentist will evaluate if you have a need for more frequent visits. DIABETES SCREENING All adults who do not have risk factors for diabetes should be screened starting at age 35 and repeated every 3 years. If you have other risk factors for diabetes, such as a first degree relative with diabetes, overweight or obesity, high blood pressure, prediabetes, or a history of heart disease, you may be tested more often. If you are overweight and have other risk factors, such as high blood pressure and are planning to become , screening is recommended. EYE EXAM Have an eye exam every 2 to 4 years ages 40 to 54 and every 1 to 3 years ages 55 to 64. Your provider may recommend more frequent eye exams if you have vision problems or glaucoma risk. Have an eye exam that includes an examination of your retina (back of your eye) at least every year if you have diabetes. IMMUNIZATIONS Commonly needed vaccines include: Flu shot: get one every year COVID-19 vaccine: ask your provider what is best for you Tetanus-diphtheria and acellular pertussis (Tdap) vaccine: have as one of your tetanus-diphtheria vaccines if you did not receive it as an adolescent Tetanus-diphtheria: have a booster (or Tdap) every 10 years Varicella vaccine: receive 2 doses if you never had chickenpox or the varicella vaccine and were born in 1980 or after Hepatitis B vaccine: receive 2, 3, or 4 doses, depending on your exact circumstances, if you did not receive these as a child or adolescent, until age 59 Shingles (herpes zoster) vaccine: at or after age 50 Ask your provider if you should receive other immunizations, especially if you have certain medical conditions, such as diabetes or are at increased risk for some diseases such as pneumonia. INFECTIOUS DISEASE SCREENING Screening for hepatitis C: all adults ages 18 to 79 should get a one-time test for hepatitis C. Screening for human immunodeficiency virus (HIV): all people ages 15 to 65 should get a one-time test for HIV. Depending on your lifestyle and medical history, you may need to be screened for infections such as syphilis, chlamydia, and other infections. LUNG CANCER SCREENING You should have an annual screening for lung cancer with low-dose computed tomography (LDCT) if: You are age 50 to 80 years AND You have a 20 pack-year smoking history AND You currently smoke or have quit within the past 15 years OSTEOPOROSIS SCREENING If you are age 50 to 64 and have risk factors for osteoporosis, you should discuss screening with your provider. Risk factors can include long-term steroid use, low body weight, smoking, heavy alcohol use, having a fracture after age 50, or a family history of hip fracture or osteoporosis. Osteoporosis PHYSICAL EXAM All adults should visit their provider from time to time, even if they are healthy. The purpose of these visits is to: Screen for diseases Assess risk of future medical problems Encourage a healthy lifestyle Update vaccinations and other preventive care services Maintain a relationship with a provider in case of an illness Your height, weight, and body mass index (BMI) should be checked at every exam. During your exam, your provider may ask you about: Depression and anxiety Diet and exercise Alcohol and tobacco use Safety, such as use of seat belts and smoke detectors Your medicines and risk for interactions PROSTATE CANCER SCREENING If you're 55 through 69 years old, before having the test, talk to your provider about the pros and cons of having a PSA test. Ask about: Whether screening decreases your chance of dying from prostate cancer. Whether there is any harm from prostate cancer screening, such as side effects from testing or overtreatment of cancer when discovered. Whether you have a higher risk of prostate cancer than others. If you are age 55 or younger, screening is not generally recommended. You should talk with your provider about if you have a higher risk for prostate cancer. Risk factors include: Having a family history of prostate cancer (especially a brother or father) Being If you choose to be tested, the PSA blood test is repeated over time (yearly or less often), though the best frequency is not known. Prostate examinations are no longer routinely done on men with no symptoms. Prostate cancer SKIN EXAM Your provider may check your skin for signs of skin cancer, especially if you're at high risk. People at high risk include those who have had skin cancer before, have close relatives with skin cancer, or have a weakened immune system. TESTICULAR EXAM The [place] Preventive Services Task Force (USPSTF) now recommends against performing testicular self-exams. Doing testicular self-exams has been shown to have little to no benefit.
[2024-10-11 08:05] VITALS: BP 122/70; PULSE 61; RESP 12; TEMP 36.1; O2SAT 98; BMI 30.7
== END 2024-10-11 08:31 | disposition home or self-care (01) ==
PROVIDERS: PCP Nurse Practitioner Family; Visit Provider Nurse Practitioner Family
DX: Z00.00 Encounter for general adult medical examination without abnormal findings (principal); I73.9 Peripheral vascular disease, unspecified; E66.9 Obesity, unspecified; Z68.30 Body mass index [BMI] 30.0-30.9, adult; F10.90 Alcohol use, unspecified, uncomplicated; R79.89 Other specified abnormal findings of blood chemistry; K76.0 Fatty (change of) liver, not elsewhere classified; E78.2 Mixed hyperlipidemia; R73.01 Impaired fasting glucose; M54.16 Radiculopathy, lumbar region; H16.11 Macular keratitis; D22.9 Melanocytic nevi, unspecified

== ENCOUNTER → 2024-10-11 07:49 | Outpatient (BNVA) | payer OTHER, SELFPAY | PROVIDERS: PCP Nurse Practitioner Family; Visit Provider Nurse Practitioner Family | DX: Z00.00 Encounter for general adult medical examination without abnormal findings (principal); F10.90 Alcohol use, unspecified, uncomplicated; R79.89 Other specified abnormal findings of blood chemistry; K76.0 Fatty (change of) liver, not elsewhere classified; E78.2 Mixed hyperlipidemia; R73.01 Impaired fasting glucose; I73.9 Peripheral vascular disease, unspecified; M54.16 Radiculopathy, lumbar region; H16.11 Macular keratitis; D22.9 Melanocytic nevi, unspecified; E66.9 Obesity, unspecified | CPT/HCPCS: 83036; 96127; 99396 ==

== ENCOUNTER 2024-10-11 09:04 | Outpatient (REF) | payer OTHER, SELFPAY ==
[2024-10-11 12:14] LABS: Alanine Aminotransferase 63 U/L (0-40); Albumin Level 4.2 g/dL (3.5-5.0); Alkaline Phosphatase 58 U/L (39-117); Anion Gap 10 (12-20); Aspartate Amino Transferase 43 U/L (5-37); Bilirubin Total 0.8 mg/dL (0.0-1.0); Blood Urea Nitrogen 10 mg/dL (9-16); Calcium 9.3 mg/dL (8.4-10.2); Carbon Dioxide 28 mmol/L (22-29); Chloride 108 mmol/L (96-108); Cholesterol 170 mg/dL (<200); Estimated Glomerular Filt Rate > 60; Glucose Fasting 118 mg/dL (60-99); HDL Cholesterol 42 mg/dL (>40); LDL Cholesterol Calculated 97 mg/dL (<100); Potassium 4.2 mmol/L (3.3-5.1); Sodium 142 mmol/L (135-145); Total Protein 7.5 g/dL (6.5-8.0); Triglycerides 156 mg/dL (<150)
[2024-10-11 12:24] LABS: Creatinine Urine 187.76 mg/dL; Microalbum/Creatinine Ratio Ur 4.2 ug/mg cr (<30)
[2024-10-11 12:34] LABS: TSH reflex Free T4 0.53 uIU/mL (0.32-4.0)
[2024-10-15 20:19] LABS: PSA, Ultra Sensitive 0.41 ng/mL
== END 2024-10-11 09:05 | disposition home or self-care (01) ==
LOC: HO.WFDLDS 09:04
PROVIDERS: Visit Provider Nurse Practitioner Family
DX: R79.89 Other specified abnormal findings of blood chemistry (principal); R73.01 Impaired fasting glucose; E78.5 Hyperlipidemia, unspecified; F10.90 Alcohol use, unspecified, uncomplicated
CPT/HCPCS: 36415; 80053; 80061; 82043; 82570; 84153; 84443

== ENCOUNTER 2024-11-04 08:20 | Outpatient (REF) | payer OTHER, SELFPAY ==
--- NOTE | ~2024-11-04 | XR_ITS ---
EXAMINATION: X-RAY LUMBAR SPINE 4 VIEWS. CLINICAL INFORMATION: Radiculopathy, lumbar region. TECHNIQUE: 4 views of the lumbar spine COMPARISON: None FINDINGS: Marginal osteophyte formation and endplate sclerosis and decreased intervertebral disc height from T11-12 level L1-2 and L4-5. No acute cortical disruption or malalignment. No lytic or blastic lesions. XR/XR lumbar spine 4V min IMPRESSION: Multilevel mild to moderate thoracolumbar spondylosis. Electronically signed by: Isaac Duval MD 11/04/2024 12:00 PM EDT
--- NOTE | ~2024-11-04 | XR_ITS ---
EXAMINATION: XR HIP, RIGHT CLINICAL INFORMATION: M25.551 - Pain in right hip COMPARISON: None available. TECHNIQUE: Two views of the right hip. AP pelvis. FINDINGS: Bony pelvis is intact. Coxofemoral joints are intact with normal alignment. No lytic or blastic lesions mild sclerosis in the articular surface of the superior margin of the acetabulum, bilaterally.. XR/XR hip RT w PEL1V IMPRESSION: Mild osteoarthrosis both coxofemoral joints. Electronically signed by: Isaac Duval MD 11/04/2024 12:01 PM EDT
== END 2024-11-04 08:21 | disposition home or self-care (01) ==
LOC: HO.XRAY 08:20
PROVIDERS: PCP Nurse Practitioner Family; Referring Provider Nurse Practitioner Family; Visit Provider Nurse Practitioner Family
DX: M54.16 Radiculopathy, lumbar region (principal); M25.551 Pain in right hip; M47.816 Spondylosis without myelopathy or radiculopathy, lumbar region; F10.90 Alcohol use, unspecified, uncomplicated
CPT/HCPCS: 72110; 73502; 99202

== ENCOUNTER 2024-11-04 08:20 | Outpatient (AMB) | payer OTHER, SELFPAY ==
--- NOTE | 2024-11-04 08:24 | MHC.OFFVIS ---
Vital Signs 11/04/24 08:28 Height 6 ft Weight 222 lb BMI 30.1 BP 116/68 Blood Pressure Location Lt brachial Position Sitting Pulse 66 Pulse Source Pulse Oximeter Pulse Oximetry (%) 100 Oxygen Delivery Method Room Air Intake Visit Reasons: Radiculopathy, lumbar region Intake Note: Pain today 10/18 Slurry Control Tender Required: No Allergies No Known Allergies Allergy (Verified 11/04/24 08:28) Medication List - Last Reconciled 11/04/24 by LYNETTE Gill acetaminophen 500 mg PO QID PRN ascorbic acid (vitamin C) 1 g PO DAILY ibuprofen 400 mg PO TID HPI HPI Radiculopathy, lumbar region: Details: The patient is a 54-year-old male presenting with an exacerbation of chronic low back pain. Denies any recent or past trauma, injury or falls. This has been a long-standing pain, centered on the lower right side of the back, has deteriorated over the last few months. Daily familiarization with worsening symptoms such as tingling pain radiating into the right thigh and calf is reported but absent on the left. The pain scale ranges from 2-9/10 but maintains a return to baseline without complete resolution. Denies any fever or chills, abdominal pain, weakness, foot drop, bladder or bowel dysfunction or saddle anesthesia. Chronicity is ruled by postural concern, such as prolonged periods of inactivity leading to intense discomfort. Episodes of notable lower back spasms occur primarily during rest periods or prolonged standing. Patient denies any previous treatment or structured pain management plan for chronic back pain. The patient mentions the infrequent use of hvrb-aul-jcvyhpv analgesics and an expressed interest in initiating physical therapeutic interventions. Lifestyle assessments reveal moderate routine consumption of alcohol and caffeine with prior history reporting no elevated risk behaviors or compounding psychiatric conditions affecting the pain. Oswestry Low Back Disability Score=2 - Onset: Pain for 10-20 years, worsening past 2-3 months. - Quality/Character: Tingling, radiating, dull, tightness, intermittent shooting pain. - Primary Location: Lower right side of the back. - Radiation: Down right leg to thigh and calf, occasional right foot tingling. - Exacerbating Factors: Prolonged sitting, bending, twisting. - Relieving Factors: Increased mobility; heating pad usage. Ibuprofen as needed. 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 - Affect: Patient denies psychological counseling, mentions the occasional back spasms. - Analgesia: Utilizing aspirin, acetaminophen, ibuprofen; reports pain levels ranging from 2-9. - Adverse Effects: None reported from medication, elevated liver enzymes observed. - Activities of Daily Living: Challenges with activities requiring prolonged sitting or bending. - Aberrant Drug Related Behaviors: None reported. Alcohol consumption 4-6 days/week of 1-3 glasses of wine. PFSH Medical History Elevated LFTs PVD (peripheral vascular disease) Alcohol use disorder Surgical History History of tonsillectomy Family History Father Hypertension Mother Ovarian cancer Maternal Grandmother Lung cancer Maternal Grandfather Lung cancer Paternal Grandfather Hypertension Cardiac disease Brother Alcoholism Sister Hypertension Social History Household Members: Children Household Members Other:: daughter Housing: Apartment Are you a primary health care consultant to a significant other at home: No Do you presently have visiting nurse or other home services: No 75 years or older and lives alone: No Alcohol intake: current Alcohol intake frequency: 3 or more drinks per day Alcohol type: beer and hard liquor Comment: Patient drinks about 5 days per week Patient Tobacco Use Status: Never used Tobacco e-Cigarette/Vaping Use: Never Used Second Hand Smoke Exposure: No service: No Current occupational status: employed Current occupation: [employer] in [place], [place], [employer] Current occupational exposures/hazards: Yes Sexual orientation: Unable to collect Gender identity: Unable to collect Cognitive needs: No Hearing needs: No Vision needs: No (Patient wears glasses) Review of Systems Const All systems reviewed & are unremarkable except as noted in HPI and below Physical Exam Vital Signs: Last Vital Signs Pulse 66 11/04/24 08:28 BP 116/68 11/04/24 08:28 Pulse Ox 100 11/04/24 08:28 Oxygen Delivery Method Room Air 11/04/24 08:28 BMI result Body Mass Index 30.1 General: Appears afebrile. Alert and oriented. Mood and affect appropriate. Follows and participates in conversation appropriately. Respiratory effort is unlabored. No cough. Able to transition from sit to stand unassisted. Ambulates with bilaterally normal heel strike and toe off. General: Yes no CVA tenderness Back/Spine/Pelvis Other: Patient is able to walk and stand on heels and tip toes with no difficulties demonstrating good motor tone. No limping. Can flex forward to 70-75 degrees and extend to 5-10 degrees before experiencing lumbar pain. Demonstrates 5/5 strength of quadriceps bilaterally as well as flexion/dorsiflexion of bilateral feet against resistance. 2+ pedal pulses bilaterally. Straight leg rise with dorsiflexion negative bilaterally. +2 patellar and achilles reflexes bilaterally. Facet loading test positive bilaterally. Krystian sign, Trey?s and Stinchfield tests are negative bilaterally. Mild groin pain with right I/E hip rotations. Valsalva maneuver negative. Back: no CVA tenderness Cervical Spine: cervical ROM normal and No Cervical spine tenderness Thoracic/Lumbar Spine: thoracic and lumbar spine normal to inspection, No Thoracic/lumbar spine scar(s), Lasegue's sign negative, straight leg raise negative bilaterally, pain with thoraco-lumbar ROM, No thoracic spinal tenderness and No lumbar spinal tenderness Pelvis: no buttock tenderness Sacroiliac joints: bilaterally nontender Extrem General: Yes capillary refill normal, Yes no clubbing, cyanosis or edema and Yes no calf tenderness Results Reviewed Results Reviewed: No imaging results are available for review. Assessment & Plan Assessment & Plan (1) Right hip pain: Code(s): M25.551 - Pain in right hip Category: Medical (2) Lumbar back pain with radiculopathy affecting right lower extremity: Code(s): M54.16 - Radiculopathy, lumbar region Category: Medical (3) Lumbar spondylosis: Code(s): M47.816 - Spondylosis without myelopathy or radiculopathy, lumbar region Category: Medical (4) Alcohol use disorder: Comment: Daily alcohol drinker. Denies any withdrawal in the past. Declines any referral for assistance. Code(s): F10.90 - Alcohol use, unspecified, uncomplicated Category: Medical Plan The plan for this visit includes obtaining X-rays of the lumbar spine and right hip to assess any structural changes contributing to the patient's chronic low back pain, particularly the aggravation over recent months. Initiating physical therapy at [facility] is advised, targeting effective pain reduction through appropriate physical exercise and posture improvement. The patient is instructed on self-care approaches, including use of heat. Given elevated liver enzymes, avoidance of muscle relaxants and limiting alcohol consumption is essential. Osli-qry-zenpuoj NSAIDs will be considered only in limited doses. We will review imaging results once x-rays completed. Anticipated outcomes will see improvement through multidisciplinary management. Patient was informed and verbally consented to the use of an ambient scribe for clinic note documentation during this visit. Orders: Orders XR lumbar spine 4V min Today M54.16 - Radiculopathy, lumbar region XR hip RT w PEL1V Today M25.551 - Pain in right hip PT Evaluation and Treatment Today M25.551 - Pain in right hip, M47.816 - Spondylosis without myelopathy or radiculopathy, lumbar region, M54.16 - Radiculopathy, lumbar region Patient Instructions: - Obtain lumbar spine and right hip X-rays as directed. - Begin physical therapy at [facility] as arranged. - Apply heat to the lower back as comfort measure. - Avoid twisting motions and heavy lifting to mitigate pain. - Limit NSAID and Tylenol use to patient safety threshold. - Monitor for any increasing discomfort; report to clinic if symptoms persist. - Await further results and follow-up instructions on medical portal. Coding Level of Care Code New Pt Level 4 (20182) Complex EM visit Add On G2211 Diagnoses Right hip pain M25.551 Lumbar back pain with radiculopathy affecting right lower extremity M54.16 Lumbar spondylosis M47.816 Alcohol use disorder F10.90
[2024-11-04 08:28] VITALS: BP 116/68; PULSE 66; O2SAT 100; BMI 30.1
== END 2024-11-04 09:07 | disposition home or self-care (01) ==
LOC: HO.PMC 08:21
PROVIDERS: PCP Nurse Practitioner Family; Referring Provider Nurse Practitioner Family; Visit Provider Nurse Practitioner Family
DX: M25.551 Pain in right hip (principal); M54.16 Radiculopathy, lumbar region; M47.816 Spondylosis without myelopathy or radiculopathy, lumbar region; F10.90 Alcohol use, unspecified, uncomplicated
CPT/HCPCS: 99204; G2211

== ENCOUNTER → 2024-11-04 09:07 | Outpatient (BNV) | payer OTHER, SELFPAY | PROVIDERS: PCP Nurse Practitioner Family; Referring Provider Nurse Practitioner Family; Visit Provider Radiology Diagnostic Radiology | DX: M47.895 Other spondylosis, thoracolumbar region (principal); M16.11 Unilateral primary osteoarthritis, right hip | CPT/HCPCS: 72110; 73502 ==

== ENCOUNTER 2024-11-09 08:21 | Outpatient (AMB) | payer OTHER, SELFPAY ==
--- NOTE | 2024-11-09 08:24 | A.OFFVIS_ITS ---
VS Expanded 11/09/24 08:33 11/09/24 08:50 Height 6 ft 6 ft Weight 222 lb 0.088 oz 222 lb BMI 30.1 30.1 Intake Visit Reasons: Hyperlipidemia Allergies No Known Allergies Allergy (Verified 11/04/24 08:28) Nutrition Presentation Details: Pt presents for MNT for IFG, elevated LFTS, hyperlipidemia. Pt was referred by PCP Pt reports mvi - not, but taking vitamin c 500 mg twice a day Pt reports making dietary modifications, reducing on etoh (to 2 glasses of wine per day) and working on including whole grain foods, Breakfast B: banana, 2 good yogurt/raspberries , overnight oats, coffee truvia , cream L: egg salad or chicken salad, soda water, 6:30 pm chicken brown rice, veggies, pasta hamburger rice , mac cheese wine 1-2/d physical activity , walking 2 times/wk >20 min BS Monitoring Most Recent Diabetes Results: Microalb/Creat Ratio 4.2 ug/mg cr (<30) 10/11/24 Cholesterol 170 mg/dL (<200) 10/11/24 HDL Cholesterol 42 mg/dL (>40) 10/11/24 Triglycerides 156 mg/dL (<150) H 10/11/24 Creatinine 0.74 mg/dL (0.5-1.4) 10/11/24 Blood Urea Nitrogen 10 mg/dL (9-16) 10/11/24 Sodium 142 mmol/L (135-145) 10/11/24 Potassium 4.2 mmol/L (3.3-5.1) 10/11/24 Chloride 108 mmol/L (96-108) 10/11/24 Carbon Dioxide 28 mmol/L (22-29) 10/11/24 Calcium 9.3 mg/dL (8.4-10.2) 10/11/24 AST 43 U/L (5-37) H 10/11/24 ALT 63 U/L (0-40) H 10/11/24 Total Protein 7.5 g/dL (6.5-8.0) 10/11/24 Albumin 4.2 g/dL (3.5-5.0) 10/11/24 OSA-Wkwujge-De.Jeor Equation Height: 6 ft Weight: 222 lb Resting Metabolic Rate: 1888.29 Calculated Activity Level: Mild Activity Calories Needed to Maintain Weight: 2596.40 Diagnosis Nutrition problem #1: altered nutrition labs As related to (etiology) #1: lack of nutrit education As evidenced by (sign/symptom) #1: abnormal lab values PFSH Medical History Elevated LFTs PVD (peripheral vascular disease) Alcohol use disorder Surgical History History of tonsillectomy Family History Father Hypertension Mother Ovarian cancer Maternal Grandmother Lung cancer Maternal Grandfather Lung cancer Paternal Grandfather Hypertension Cardiac disease Brother Alcoholism Sister Hypertension Social History Household Members: Children Household Members Other:: daughter Housing: Apartment Are you a primary personal care service provider to a significant other at home: No Do you presently have visiting nurse or other home services: No 75 years or older and lives alone: No Alcohol intake: current Alcohol intake frequency: 3 or more drinks per day Alcohol type: beer and hard liquor Comment: Patient drinks about 5 days per week Patient Tobacco Use Status: Never used Tobacco e-Cigarette/Vaping Use: Never Used Second Hand Smoke Exposure: No service: No Current occupational status: employed Current occupation: [employer] in [place], [place], [employer] Current occupational exposures/hazards: Yes Sexual orientation: Unable to collect Gender identity: Unable to collect Cognitive needs: No Hearing needs: No Vision needs: No (Patient wears glasses) Assessment & Plan Assessment & Plan (1) IFG (impaired fasting glucose): Code(s): R73.01 - Impaired fasting glucose Category: Medical Plan: Wt: 100 Kg ( 11/09/24 ) Est kcal needs as per MSJ: 2249-8219 (40% carb, 30% protein/fat) Est fluid needs as per 25-30 ml/d: 3000 Est prot per day as per 1 g/kg bw: 100 Recommend fiber intake : 8-10 g per day and gradually increase to 25-28 g per day for women and 35-38 g for men or as tolerated Recommend sodium intake per day : less than 2000 mg Educated patient on: ( R = reviewed V = verbalizes understanding N/R = needs review N/A = not applicable * Food sources of carbohydrate, adequate serving sizes and its role in various health conditions: R V * Differences between complex carbohydrates a simple carbohydrates, role of fiber in diet: R V * Lean protein sources of foods: R * Differences between types of fats and role in diet (mono on saturated fat fatty acids, saturated fatty acids, trans fats): R basic * Food sources of sodium in salt and healthy modifications for heart health in kidney health: R V R/V * Vitamins and minerals: R * Healthy plate method concept: R * Physical activity: Benefits a precaution: R * Dietary prevention of Hyperglycemia: R Patient Instructions: Continue working on including lean protein foods in your diet and reduce total carb to less than 75 g at meal (3 meals/d) and 0-20 g as snack Choose whole grain foods and keep hydrated 10-12 cups of fluid per day (low sugar/low fat) continue working towards alcohol abstinence Take a daily MVI Coding Level of Care Code Nutr Indiv Intake (46307) Diagnoses IFG (impaired fasting glucose) R73.01 Time Spent (min) 30
[2024-11-09 08:33] VITALS: BMI 30.1
[2024-11-09 08:50] VITALS: BMI 30.1
== END 2024-11-09 09:20 | disposition home or self-care (01) ==
LOC: HO.ENCR 08:22
PROVIDERS: PCP Nurse Practitioner Family; Visit Provider Dietitian, Registered
DX: R73.01 Impaired fasting glucose (principal)

== ENCOUNTER → 2024-11-09 08:21 | Outpatient (BNVA) | payer OTHER, SELFPAY | PROVIDERS: PCP Nurse Practitioner Family; Visit Provider Dietitian, Registered | DX: R73.01 Impaired fasting glucose (principal) | CPT/HCPCS: 97802 ==

== ENCOUNTER 2024-12-14 10:57 | Outpatient (AMB) | payer OTHER, SELFPAY ==
[2024-12-14 11:06] VITALS: BMI 29.6
--- NOTE | 2024-12-14 11:06 | A.OFFVIS_ITS ---
VS Expanded 12/14/24 11:06 Height 6 ft Weight 218 lb 7.649 oz BMI 29.6 Intake Visit Reasons: IfG, hyperlipidemia, elevated LFTs Allergies No Known Allergies Allergy (Verified 11/04/24 08:28) Nutrition Presentation Details: Pt presents for MNT f/u for IFG, hypelipidemia Reports working on diet modifications, feeling well, reading food labels and choosing low carb high fiber foods denies constipation , diarrhea physical activity - walking 2 x/wk BS Monitoring Most Recent Diabetes Results: Microalb/Creat Ratio 4.2 ug/mg cr (<30) 10/11/24 Cholesterol 170 mg/dL (<200) 10/11/24 HDL Cholesterol 42 mg/dL (>40) 10/11/24 Triglycerides 156 mg/dL (<150) H 10/11/24 Creatinine 0.74 mg/dL (0.5-1.4) 10/11/24 Blood Urea Nitrogen 10 mg/dL (9-16) 10/11/24 Sodium 142 mmol/L (135-145) 10/11/24 Potassium 4.2 mmol/L (3.3-5.1) 10/11/24 Chloride 108 mmol/L (96-108) 10/11/24 Carbon Dioxide 28 mmol/L (22-29) 10/11/24 Calcium 9.3 mg/dL (8.4-10.2) 10/11/24 AST 43 U/L (5-37) H 10/11/24 ALT 63 U/L (0-40) H 10/11/24 Total Protein 7.5 g/dL (6.5-8.0) 10/11/24 Albumin 4.2 g/dL (3.5-5.0) 10/11/24 [facility] Medical History Elevated LFTs PVD (peripheral vascular disease) Alcohol use disorder Surgical History History of tonsillectomy Family History Father Hypertension Mother Ovarian cancer Maternal Grandmother Lung cancer Maternal Grandfather Lung cancer Paternal Grandfather Hypertension Cardiac disease Brother Alcoholism Sister Hypertension Social History Household Members: Children Household Members Other:: daughter Housing: Apartment Are you a primary live in caregiver to a significant other at home: No Do you presently have visiting nurse or other home services: No 75 years or older and lives alone: No Alcohol intake: current Alcohol intake frequency: 3 or more drinks per day Alcohol type: beer and hard liquor Comment: Patient drinks about 5 days per week Patient Tobacco Use Status: Never used Tobacco e-Cigarette/Vaping Use: Never Used Second Hand Smoke Exposure: No service: No Current occupational status: employed Current occupation: [employer] in [place], [place], [employer] Current occupational exposures/hazards: Yes Sexual orientation: Unable to collect Gender identity: Unable to collect Cognitive needs: No Hearing needs: No Vision needs: No (Patient wears glasses) Assessment & Plan Assessment & Plan (1) IFG (impaired fasting glucose): Code(s): R73.01 - Impaired fasting glucose Category: Medical Plan: Wt: 100 Kg ( 11/09/24 ), 99kg (01/02) Est kcal needs as per MSJ: 5684-5440 (40% carb, 30% protein/fat) Est fluid needs as per 25-30 ml/d: 3000 Est prot per day as per 1 g/kg bw: 100 Recommend fiber intake : 8-10 g per day and gradually increase to 25-28 g per day for women and 35-38 g for men or as tolerated Recommend sodium intake per day : less than 2000 mg Educated patient on: ( R = reviewed V = verbalizes understanding N/R = needs review N/A = not applicable * Food sources of carbohydrate, adequate serving sizes and its role in various health conditions: R V * Differences between complex carbohydrates a simple carbohydrates, role of fiber in diet: R V * Lean protein sources of foods: R * Differences between types of fats and role in diet (mono on saturated fat fatty acids, saturated fatty acids, trans fats): R * Food sources of sodium in salt and healthy modifications for heart health in kidney health: R V R/V * Vitamins and minerals: R * Healthy plate method concept: R * Physical activity: Benefits a precaution: R * Dietary prevention of Hyperglycemia: R Patient Instructions: Continue following healthy plate method Keep hydrated as you increase fiber intake to prevent constipation Choose unsaturated fats vs saturated fats - see list of ideas Coding Level of Care Code Nutr Indiv Subseq (51170) Diagnoses IFG (impaired fasting glucose) R73.01 Time Spent (min) 25
== END 2024-12-14 11:20 | disposition home or self-care (01) ==
LOC: HO.ENCR 10:58
PROVIDERS: PCP Nurse Practitioner Family; Visit Provider Dietitian, Registered
DX: R73.01 Impaired fasting glucose (principal)

== ENCOUNTER → 2024-12-14 10:57 | Outpatient (BNVA) | payer OTHER, SELFPAY | PROVIDERS: PCP Nurse Practitioner Family; Visit Provider Dietitian, Registered | DX: R73.01 Impaired fasting glucose (principal) | CPT/HCPCS: 97803 ==

== ENCOUNTER 2025-03-15 10:50 | Outpatient (AMB) | payer OTHER, SELFPAY ==
[2025-03-15 11:18] VITALS: BMI 28.3
--- NOTE | 2025-03-15 11:18 | A.OFFVIS_ITS ---
VS Expanded 03/15/25 11:18 03/15/25 11:37 Height 6 ft 6 ft Weight 208 lb 5.389 oz 208 lb BMI 28.3 28.2 Intake Visit Reasons: IFG Allergies No Known Allergies Allergy (Verified 11/04/24 08:28) Nutrition Presentation Details: Pt presents for MNT f/u for IFG Pt reports having 3 meals/day , working on choosing non alcoholic beverages and choosing healthier food options, reading food labels, incorporating omega 3 sources of foods food frequency fruits: 2-3/d fish: 1x/wk milk : 2 good yogurt, cheese vegetables : 3-5 x/d 2-3 cup of coffee in AM, coffee/water, oj /coke mvi daily natures made BS Monitoring Most Recent Diabetes Results: Microalb/Creat Ratio, (<30) 4.2 ug/mg cr 10/11/24 Cholesterol, (<200) 170 mg/dL 10/11/24 HDL Cholesterol, (>40) 42 mg/dL 10/11/24 Triglycerides, (<150) 156 mg/dL H 10/11/24 Creatinine, (0.5-1.4) 0.74 mg/dL 10/11/24 BUN, (9-16) 10 mg/dL 10/11/24 Sodium, (135-145) 142 mmol/L 10/11/24 Potassium, (3.3-5.1) 4.2 mmol/L 10/11/24 Chloride, (96-108) 108 mmol/L 10/11/24 Carbon Dioxide, (22-29) 28 mmol/L 10/11/24 Calcium, (8.4-10.2) 9.3 mg/dL 10/11/24 AST, (5-37) 43 U/L H 10/11/24 ALT, (0-40) 63 U/L H 10/11/24 Total Protein, (6.5-8.0) 7.5 g/dL 10/11/24 Albumin, (3.5-5.0) 4.2 g/dL 10/11/24 UWL-Lvyuwqd-Nr.Jeor Equation Height: 6 ft Weight: 208 lb Resting Metabolic Rate: 1824.85 Calculated Activity Level: Sedentary Calories Needed to Maintain Weight: 2189.82 [facility] Medical History Elevated LFTs PVD (peripheral vascular disease) Alcohol use disorder Surgical History History of tonsillectomy Family History Father Hypertension Mother Ovarian cancer Maternal Grandmother Lung cancer Maternal Grandfather Lung cancer Paternal Grandfather Hypertension Cardiac disease Brother Alcoholism Sister Hypertension Social History Household Members: Children Household Members Other:: daughter Housing: Apartment Are you a primary healthcare administrative assistant to a significant other at home: No Do you presently have visiting nurse or other home services: No 75 years or older and lives alone: No Alcohol intake: current Alcohol intake frequency: 3 or more drinks per day Alcohol type: beer and hard liquor Comment: Patient drinks about 5 days per week Patient Tobacco Use Status: Never used Tobacco e-Cigarette/Vaping Use: Never Used Second Hand Smoke Exposure: No service: No Current occupational status: employed Current occupation: [employer] in [place], [place] [employer] Current occupational exposures/hazards: Yes Sexual orientation: Unable to collect Gender identity: Unable to collect Cognitive needs: No Hearing needs: No Vision needs: No (Patient wears glasses) Assessment & Plan Assessment & Plan (1) IFG (impaired fasting glucose): Code(s): R73.01 - Impaired fasting glucose Category: Medical Plan: Wt: 100 Kg ( 11/09/24), 99kg (01/02), 94.5kg(04/04) Est kcal needs as per MSJ: 2300 (40% carb, 30% protein/fat) Est fluid needs as per 25-30 ml/d: 2800 Est prot per day as per 1 g/kg bw: 100 Recommend fiber intake : 8-10 g per day and gradually increase to 25-28 g per day for women and 35-38 g for men or as tolerated Recommend sodium intake per day : less than 2000 mg Educated patient on: ( R = reviewed V = verbalizes understanding N/R = needs review N/A = not applicable * Food sources of carbohydrate, adequate serving sizes and its role in various health conditions: R V * Differences between complex carbohydrates a simple carbohydrates, role of fiber in diet: R V * Lean protein sources of foods: R * Differences between types of fats and role in diet (mono on saturated fat fatty acids, saturated fatty acids, trans fats): R * Food sources of sodium in salt and healthy modifications for heart health in kidney health: R V R/V * Vitamins and minerals: R * Healthy plate method concept: R * Physical activity: Benefits a precaution: R * Dietary prevention of Hyperglycemia: R Patient Instructions: Engage in physical activity at least 30-40 minutes 3 -4 times a week keep hydrated Gradually reduce amount of caffeine - choose decaf Coding Level of Care Code Nutr Indiv Subseq (44677) Diagnoses IFG (impaired fasting glucose) R73.01 Time Spent (min) 30
[2025-03-15 21:29] VITALS: BMI 28.2
== END 2025-03-15 11:40 | disposition home or self-care (01) ==
LOC: HO.ENCR 10:51
PROVIDERS: PCP Nurse Practitioner Family; Visit Provider Dietitian, Registered
DX: R73.01 Impaired fasting glucose (principal)

== ENCOUNTER → 2025-03-15 10:50 | Outpatient (BNVA) | payer OTHER, SELFPAY | PROVIDERS: PCP Nurse Practitioner Family; Visit Provider Dietitian, Registered | DX: R73.01 Impaired fasting glucose (principal) | CPT/HCPCS: 97803 ==

== ENCOUNTER 2025-04-13 09:11 | Outpatient (REF) | payer OTHER, SELFPAY ==
[2025-04-13 11:37] LABS: Hematocrit 44.0 % (42.0-52.0); Hemoglobin 15.3 g/dl (14.0-18.0); Mean Corpuscular HGB Conc 34.8 g/dl (31.0-36.0); Mean Corpuscular Hemoglobin 30.9 pg (27.0-33.0); Mean Corpuscular Volume 88.9 fL (80.0-98.0); NRBC Abs Auto 0.000 X10*3/uL (0.0-0.012); NRBC Pct Auto 0.0 /100WBC (0.0-0.2); Platelet Count 221 X10*3/uL (160-400); Red Blood Count 4.95 X10*6/uL (4.60-5.80); White Blood Count 7.3 X10*3/uL (4.8-10.8)
[2025-04-13 12:02] LABS: Alanine Aminotransferase 25 U/L (0-40); Albumin Level 4.7 g/dL (3.5-5.0); Alkaline Phosphatase 53 U/L (39-117); Anion Gap 12 (12-20); Aspartate Amino Transferase 25 U/L (5-37); Blood Urea Nitrogen 11 mg/dL (9-16); Calcium 9.6 mg/dL (8.4-10.2); Carbon Dioxide 27 mmol/L (22-29); Chloride 106 mmol/L (96-108); Cholesterol 192 mg/dL (<200); Estimated Glomerular Filt Rate > 60; HDL Cholesterol 46 mg/dL (>40); Potassium 3.8 mmol/L (3.3-5.1); Sodium 141 mmol/L (135-145); Total Protein 7.3 g/dL (6.5-8.0); Triglycerides 108 mg/dL (<150)
[2025-04-13 12:32] LABS: Folate 12.0 ng/mL (> or = 4.0); Vitamin B12 289 pg/mL (200-900)
== END 2025-04-13 09:12 | disposition home or self-care (01) ==
LOC: HO.WFDLDS 09:11
PROVIDERS: Visit Provider Nurse Practitioner Family
DX: R73.01 Impaired fasting glucose (principal); F10.90 Alcohol use, unspecified, uncomplicated; R79.89 Other specified abnormal findings of blood chemistry; K76.0 Fatty (change of) liver, not elsewhere classified; E78.5 Hyperlipidemia, unspecified
CPT/HCPCS: 36415; 80053; 80061; 82607; 82746; 85027

== ENCOUNTER 2025-04-14 08:27 | Outpatient (AMB) | payer OTHER, SELFPAY ==
--- NOTE | 2025-04-14 08:30 | MHC.PC.OV ---
Vital Signs 04/14/25 08:35 Height 6 ft Weight 206 lb 4 oz BMI 28.0 BP 112/70 Blood Pressure Location Rt brachial Position Sitting Respiration 12 Pulse 78 Pulse Source Pulse Oximeter Temp 97.6 F Temp Source Oral Pulse Oximetry (%) 98 Oxygen Delivery Method Room Air Intake Visit Reasons: 6 months 30 min routine fu, labs 1 week before Intake Note: Follow up to review labs. Promotions Specialist Required: No Allergies No Known Allergies Allergy (Verified 04/14/25 08:46) Medication List - Last Reconciled 04/14/25 by LYNETTE Abdullahi-GIANCARLO acetaminophen 500 mg PO QID PRN ascorbic acid (vitamin C) 1 g PO DAILY ibuprofen 400 mg PO TID mecobalamin (vitamin B12) 1,000 mcg PO DAILY multivitamin 1 tab PO DAILY Tobacco use date assessed: 04/14/25 Dental Screening Dental Screen Date: 04/14/25 Did you have a dental visit in the last 12 months?: Yes Did you have a dental problem in the last 6 months where you did not have access to dental care?: No Was dental information given to patient?: Patient has dentist HPI HPI Comments History of Present Illness Details 54 Y/O M newly with obesity, daily etoh use, PVD, IFg, elevated LFT, fatty liver dz, diverticulosis 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 Health Maintenance: [place] [facility] [place] adenoma repeat 3 years Vaccines: UTD on COVID, declines flu, Tdap 09/29/2023 Specialists: Derm never did fu - did not go; no interest in following up on this @ this time. GI [facility] Staff Nurse Surgeries: None History of Present Illness - The patient is a 54-year-old male presenting for a routine follow-up for chronic medical conditions management. - Hyperlipidemia: LDL increased from 97 to 125, despite total cholesterol and HDL being stable. - Fatty liver disease: Liver enzymes normalized. - Elevated fasting glucose: Improved from 118 to 104. A1c improved from 6 to 5.6% - Alcohol use disorder: Continued use of non-alcoholic beers, red wine, occasional whiskey. - Weight loss noted, working with sack repairer. - Chronic lower back pain improved, potentially due to weight loss; X-rays done, did not do physical therapy. Does not feel he needs this. - Low normal B12 levels observed on recent labs - taking MVI QD -bilat legs feel tired upon waking; takes a few hours to get going; has been going on for years. wIll need to consider adding on some labs if this cont and does not get better w/ b12 supplementation. Review of Systems - Constitutional: Reports weight loss; denies fatigue. - Musculoskeletal: Reports morning stiffness and leg aching, improving with movement. - Neurological: Denies confusion or gait changes. - Cardiovascular: Denies chest pain or shortness of breath. - Dermatological: Denies interest in dermatology issues. - Gastrointestinal: Denies abdominal pain. - Genitourinary: Normal urination. - Psychological: Reports good mood. - Visual: Denies changes in vision. Exam: General: Well developed, well nourished, in no acute distress. Appears stated age. Eyes: scleras nonicteric bilat Lungs: Clear to auscultation bilaterally. No rales, rhonchi or wheeze noted. Good air flow in all jaffe. Heart: Regular rate and rhythm. No murmurs, click, rubs or gallops are noted. Abdomen: Bowel sounds present in all quadrants. The abdomen is soft, with no masses. No hernias are noted. Positive hepatomegaly liver edge palpable Pulses: Peripheral pulses are equal and palpable bilaterally. Extremities: No clubbing, cyanosis nor edema is noted. Hairless bilateral lower extremities, skin is shiny and intact with hemosiderin. Skin: No rash. Turgor is good. Skin color is good. Hair and nails are without abnormalities. Areolar keratitis of the right without any other breast abnormalities noted such as discharge dimpling retraction or gynecomastia. Multiple nevi noted on trunk. Dorsum of right hand is a pale flesh colored nevi slightly raised with regular borders with scaling. Psych: Normal eye contact, affect and mood appropriate, and normal interactions. Patient is alert and appropriate to context. Results - Labs: - Improved A1c. - Fasting glucose decreased to 104. - Normalized liver enzymes. - Total cholesterol normal, LDL increased to 125, HDL stable. - Low-end normal B12 level at 289. - Labs: - Improved A1c. - Fasting glucose decreased to 104. - Normalized liver enzymes. - Total cholesterol normal, LDL increased to 125, HDL stable. - Low-end normal B12 level at 289. Discussion Notes During the visit, we discussed the patient's overall improvement in several chronic conditions, highlighting significant reductions in fasting glucose and liver enzyme normalization. We noted the increase in LDL cholesterol and patient acknowledged current consumption of non-alcoholic beers and moderation with alcohol intake. Encouragement was given to continue weight management efforts and follow nutritional guidance. We discussed the importance of supplementing B12 to mitigate symptoms of morning stiffness and potential neurological implications. Follow-up appointments with the sack repairer and consideration for additional lab evaluations were emphasized. The patient was informed about precautions related to any signs of worsening symptoms or new issues, advised to communicate if the stiffness persists despite supplementation. Overall, the patient is encouraged about their progress and instructed to maintain healthy lifestyle changes. Patient was given time to ask questions. All questions were answered to their satisfaction. Assessment and Plan 1. Hyperlipidemia - Monitor LDL management with dietary modifications. 2. Non-alcoholic fatty liver disease - Liver enzymes normalized; continue monitoring. 3. Elevated fasting glucose - Improved levels, continue nutritional guidance. 4. Alcohol use disorder - Reduce alcohol intake; continue monitoring. 5. Lower back pain - Improvement seen, focus on weight control. 6. Low vitamin B12 levels - Recommend [id number] B12 supplementation 1000mcg QD in addition to MVI 7. Stiffness legs in the AM Send me a message on the portal a few weeks before your next appt, if this cont. will consider adding labs to look for autoimmune arthritis. Patient Instructions - Follow dietary recommendations to manage cholesterol. - Continue weight management efforts. - Reduce alcohol intake further, focusing on non-alcoholic options. - Purchase and take B12 supplements as directed. - Monitor morning stiffness; report if symptoms persist. - RTO 6 mo CPE, labs, sooner as needed. Consent Patient was informed and verbally consented to the use of an ambient scribe for clinic note documentation during this visit. Total time spent caring for the patient today was 34 minutes. This includes time spent before the visit reviewing the chart, time spent during the visit, and time spent after the visit on documentation, reviewing laboratory results, diagnostic imaging, medications, performing a medically necessary evaluation, counseling on diagnoses, care coordination, ordering appropriate tests, ordering appropriate medications, review of tests performed by other providers, reporting test results with the patient, communication with other healthcare providers. [facility] Medical History (Updated 04/14/25 @ 09:08 by Lisandra Sandoval, [facility]) Alcohol use disorder Elevated LFTs PVD (peripheral vascular disease) Surgical History (Updated 04/14/25 @ 09:08 by LYNETTE Abdullahi-) History of colonoscopy (~09/2024) History of tonsillectomy Family History Father Hypertension Mother Ovarian cancer Maternal Grandmother Lung cancer Maternal Grandfather Lung cancer Paternal Grandfather Hypertension Cardiac disease Brother Alcoholism Sister Hypertension Social History Household Members: Children Household Members Other:: daughter Housing: Apartment Are you a primary child day care teacher to a significant other at home: No Do you presently have visiting nurse or other home services: No 75 years or older and lives alone: No Alcohol intake: current Alcohol intake frequency: 3 or more drinks per day Alcohol type: beer and hard liquor Comment: Patient drinks about 5 days per week Patient Tobacco Use Status: Never used Tobacco e-Cigarette/Vaping Use: Never Used Second Hand Smoke Exposure: No service: No Current occupational status: employed Current occupation: [employer] in [place], [place], [employer] Current occupational exposures/hazards: Yes Sexual orientation: Unable to collect Gender identity: Unable to collect Cognitive needs: No Hearing needs: No Vision needs: No (Patient wears glasses) Questionnaire Thrive Questionnaire Date Thrive assessed: 09/27/24 I am a: Patient What is your living situation today?: I have a steady place to live Within the past 12 months, did the food you bought not last and you didn't have the money to get more?: Never true Within the past 12 months, did you worry whether your food would run out before you got money to buy more?: I choose not to answer this question Do you have trouble paying for medicines?: No Do you have trouble getting transportation to medical appointments?: No Do you have trouble paying your heating and electricity bill?: I choose not to answer this question Do you have trouble taking care of your child, family member or friend?: No Do you have trouble with day-to-day activities such as bathing, preparing meals, shopping, managing finances, etc.?: No Are you currently unemployed and looking for a job?: No Are you interested in more education?: No Please select the resources that you would like help with: None Currently or been in a relationship where the following occur: No concerns reported THRIVE Score: 0 DONNIE-7 AMB Questionnaire DONNIE-7 Date DONNIE - 7 assessed: 10/11/24 Source: Developed by Drs. Horacio Donnelly, Dina Mcclellan, Salvador Bermudez and colleagues, with an educational chasity from [employer]. Physical exam (Primary Care) Vital Signs: Last Vital Signs Temp 97.6 F 04/14/25 08:35 Pulse 78 04/14/25 08:35 Resp 12 04/14/25 08:35 BP 112/70 04/14/25 08:35 Pulse Ox 98 04/14/25 08:35 Oxygen Delivery Method Room Air 04/14/25 08:35 BMI result Body Mass Index 28.0 Tobacco/Smoking Status: Tobacco use Status Tobacco use date assessed 04/14/25 04/14/25 08:34 Patient Tobacco Use Status Never used Tobacco 04/14/25 08:31 e-Cigarette/Vaping Use Never Used 04/14/25 08:31 Thrive Assessment: Date of Thrive Assessment Date Thrive assessed 09/27/24 04/14/25 08:31 Currently or been in a relationship where the following occur: No concerns reported Results AMB Hemoglobin A1c AMB Hemoglobin A1c 5.6 % Last Edit by Sigifredo Dominguez MA on 04/14/25 08:48 Results Reviewed Results Reviewed: Laboratory 04/13/2025 Result Units Range Interpretation Provider Comments White Blood Count 7.3 X10*3/uL (4.8-10.8) Red Blood Count 4.95 X10*6/uL (4.60-5.80) Hemoglobin 15.3 g/dl (14.0-18.0) Hematocrit 44.0 % (42.0-52.0) Mean Corpuscular Volume 88.9 fL (80.0-98.0) Mean Corpuscular Hemoglobin 30.9 pg (27.0-33.0) Mean Corpuscular Hemoglobin Concent 34.8 g/dl (31.0-36.0) Red Cell Distribution Width 12.8 % (11.0-16.0) Platelet Count 221 X10*3/uL (160-400) Mean Platelet Volume 10.6 fL (9.4-12.4) Nucleated RBC Absolute Count (auto) 0.000 X10*3/uL (0.0-0.012) Nucleated Red Blood Cells % (auto) 0.0 /100WBC (0.0-0.2) Sodium Level 141 mmol/L (135-145) Potassium Level 3.8 mmol/L (3.3-5.1) Chloride Level 106 mmol/L (96-108) Carbon Dioxide Level 27 mmol/L (22-29) Anion Gap 12 (12-20) Blood Urea Nitrogen 11 mg/dL (9-16) Creatinine 0.83 mg/dL (0.5-1.4) Estimated Creatinine Clearance Calc Not Reportable Estimat Glomerular Filtration Rate > 60 Fasting Glucose 104 mg/dL (60-99) High Calcium Level 9.6 mg/dL (8.4-10.2) Total Bilirubin 0.9 mg/dL (0.0-1.0) Aspartate Amino Transf (AST/SGOT) 25 U/L (5-37) Alanine Aminotransferase (ALT/SGPT) 25 U/L (0-40) Alkaline Phosphatase 53 U/L (39-117) Total Protein 7.3 g/dL (6.5-8.0) Albumin 4.7 g/dL (3.5-5.0) Triglycerides Level 108 mg/dL (<150) Cholesterol Level 192 mg/dL (<200) LDL Cholesterol, Calculated 125 mg/dL (<100) High HDL Cholesterol 46 mg/dL (>40) Vitamin B12 Level 289 pg/mL (200-900) Folate 12.0 ng/mL (> or = 4.0) Coding Level of Care Code Est Pt Level 4 (90374) Complex EM visit Add On G2211 Diagnoses Alcohol use disorder F10.90 Mixed hyperlipidemia E78.2 Hyperlipidemia type: mixed hyperlipidemia IFG (impaired fasting glucose) R73.01 Fatty liver K76.0 B12 deficiency E53.8 Lumbar spondylosis M47.816 Stiffness of joint of lower leg M25.669 Assessment & Plan Assessment & Plan (1) Alcohol use disorder: Comment: Daily alcohol drinker. Denies any withdrawal in the past. Declines any referral for assistance. Code(s): F10.90 - Alcohol use, unspecified, uncomplicated Category: Medical (2) Hyperlipidemia: Code(s): E78.5 - Hyperlipidemia, unspecified Category: Medical Qualifiers: Hyperlipidemia type: mixed hyperlipidemia Qualified Code(s): E78.2 - Mixed hyperlipidemia (3) IFG (impaired fasting glucose): Code(s): R73.01 - Impaired fasting glucose Category: Medical (4) Fatty liver: Comment: ESTELLA US 11/2023 1. There is generalized increase in hepatic echotexture, consistent with fatty infiltration or hepatocellular disease. Please correlate clinically. No focal hepatic mass or intrahepatic biliary dilatation is seen. 2. Liver elastography: In the absence of other known clinical signs, measurements rule out compensated advanced chronic liver disease. If there are known clinical signs, further testing may be needed for confirmation. 3. Incidental note is made of tiny cholesterol polyps, the largest measuring 3 mm. Shear wave liver elastography median stiffness is 1.38 m/s (reference: normal median stiffness is 1.3 m/s or less). Repeat LFTs today. Consult with GI complete. Continue to encourage and support alcohol reduction and cessation. Code(s): K76.0 - Fatty (change of) liver, not elsewhere classified Category: Medical (5) B12 deficiency: Code(s): E53.8 - Deficiency of other specified B group vitamins Category: Medical (6) Lumbar spondylosis: Code(s): M47.816 - Spondylosis without myelopathy or radiculopathy, lumbar region Category: Medical (7) Stiffness of joint of lower leg: Code(s): M25.669 - Stiffness of unspecified knee, not elsewhere classified Category: Medical Plan . Orders: Orders AMB Hemoglobin A1c Today Z13.9 - Encounter for screening, unspecified Lipid Panel 6 Months E78.2 - Mixed hyperlipidemia, F10.90 - Alcohol use, unspecified, uncomplicated, K76.0 - Fatty (change of) liver, not elsewhere classified, R73.01 - Impaired fasting glucose Vitamin D 25-OH Total 6 Months E78.2 - Mixed hyperlipidemia, F10.90 - Alcohol use, unspecified, uncomplicated, K76.0 - Fatty (change of) liver, not elsewhere classified, R73.01 - Impaired fasting glucose Complete Blood Count no Diff 6 Months E78.2 - Mixed hyperlipidemia, F10.90 - Alcohol use, unspecified, uncomplicated, K76.0 - Fatty (change of) liver, not elsewhere classified, R73.01 - Impaired fasting glucose Comprehensive Met. Panel 6 Months E78.2 - Mixed hyperlipidemia, F10.90 - Alcohol use, unspecified, uncomplicated, K76.0 - Fatty (change of) liver, not elsewhere classified, R73.01 - Impaired fasting glucose Prostate Specific Antigen Scr 6 Months E78.2 - Mixed hyperlipidemia, F10.90 - Alcohol use, unspecified, uncomplicated, K76.0 - Fatty (change of) liver, not elsewhere classified, R73.01 - Impaired fasting glucose TSH reflex Free T4 6 Months E78.2 - Mixed hyperlipidemia, F10.90 - Alcohol use, unspecified, uncomplicated, K76.0 - Fatty (change of) liver, not elsewhere classified, R73.01 - Impaired fasting glucose Vitamin B12 and Folate 6 Months E78.2 - Mixed hyperlipidemia, F10.90 - Alcohol use, unspecified, uncomplicated, K76.0 - Fatty (change of) liver, not elsewhere classified, R73.01 - Impaired fasting glucose
[2025-04-14 08:35] VITALS: BP 112/70; PULSE 78; RESP 12; TEMP 36.4; O2SAT 98; BMI 28.0
== END 2025-04-14 09:02 | disposition home or self-care (01) ==
LOC: HO.HMCFM 08:28
PROVIDERS: PCP Nurse Practitioner Family; Visit Provider Nurse Practitioner Family
DX: F10.90 Alcohol use, unspecified, uncomplicated (principal); E78.2 Mixed hyperlipidemia; R73.01 Impaired fasting glucose; K76.0 Fatty (change of) liver, not elsewhere classified; E53.8 Deficiency of other specified B group vitamins; M47.816 Spondylosis without myelopathy or radiculopathy, lumbar region; M25.669 Stiffness of unspecified knee, not elsewhere classified; Z13.9 Encounter for screening, unspecified

== ENCOUNTER → 2025-04-14 08:27 | Outpatient (BNVA) | payer OTHER, SELFPAY | PROVIDERS: PCP Nurse Practitioner Family; Visit Provider Nurse Practitioner Family | DX: E78.2 Mixed hyperlipidemia (principal); K76.0 Fatty (change of) liver, not elsewhere classified; E78.5 Hyperlipidemia, unspecified; R73.01 Impaired fasting glucose; M54.50 Low back pain, unspecified; E53.8 Deficiency of other specified B group vitamins; F10.90 Alcohol use, unspecified, uncomplicated; M47.816 Spondylosis without myelopathy or radiculopathy, lumbar region; M25.669 Stiffness of unspecified knee, not elsewhere classified | CPT/HCPCS: 83036; 99212 ==